=== PATIENT | female | born 1960 | race Caucasian/White ===

== ENCOUNTER → 2017-12-20 09:22 | Outpatient (CLI) | payer OTHER, SELFPAY ==
[2017-12-20 12:50] LABS: Thyroid Stim Hormone (TSH) 0.05 uIU/mL (0.358-3.74)
== END ==
PROVIDERS: Visit Provider Family Medicine
DX: E03.9 Hypothyroidism, unspecified (principal)
CPT/HCPCS: 36415; 84443

== ENCOUNTER → 2018-03-27 10:51 | Outpatient (CLI) | payer OTHER, SELFPAY ==
[2018-03-27 12:46] LABS: T4 Free Direct 1.42 ng/dL (0.76-1.46); Thyroid Stim Hormone (TSH) 0.06 uIU/mL (0.358-3.74)
== END ==
PROVIDERS: Family Provider Family Medicine; PCP Family Medicine; Visit Provider Family Medicine
DX: E03.9 Hypothyroidism, unspecified (principal)
CPT/HCPCS: 36415; 84439; 84443

== ENCOUNTER → 2018-04-03 12:38 | Outpatient (CLI) | payer OTHER, SELFPAY ==
--- NOTE | 2018-04-03 15:48 | RAD_ITS ---
STUDY: XR SPINE ENTIRE THORACIC T LUMBAR (W SKULL, CERVICAL AND SACRAL SPINE IF PERFORMED) REASON FOR EXAM: Female, 58 years old. Scoliosis and back pain TECHNIQUE: Radiological exam, spine, entire thoracic and lumbar, including skull, cervical and sacral spine if performed (eg, scoliosis evaluation); 1 view COMPARISON: None. FINDINGS: There is levoscoliosis of the lumbar spine measuring roughly 34 degrees from the superior endplate of T12 to the inferior endplate of L4. Vertebral body heights appear within normal limits. RAD/Scoliosis 1 view IMPRESSION: Levoscoliosis as above Electronically Signed: Ad Castrejon DO at 15:23 EDT Tel , Service support ,
== END ==
PROVIDERS: Family Provider Family Medicine; PCP Family Medicine; Visit Provider Family Medicine
DX: M41.9 Scoliosis, unspecified (principal)
CPT/HCPCS: 72081

== ENCOUNTER → 2018-05-04 11:05 | Outpatient (CLI) | payer OTHER, SELFPAY ==
[2018-05-04 12:52] LABS: T4 Free Direct 1.34 ng/dL (0.76-1.46); Thyroid Stim Hormone (TSH) 0.17 uIU/mL (0.358-3.74)
== END ==
PROVIDERS: Family Provider Family Medicine; PCP Family Medicine; Visit Provider Family Medicine
DX: E03.9 Hypothyroidism, unspecified (principal)
CPT/HCPCS: 36415; 84439; 84443

== ENCOUNTER 2019-10-03 09:45 | Emergency (ER) | payer OTHER, SELFPAY ==
[2019-10-03 09:47] VITALS: BP 159/114; PULSE 84; RESP 17; TEMP 36.7; O2SAT 95; BMI 28.0
--- NOTE | 2019-10-03 10:09 | ED.VIS.GEN ---
History of Present Illness Chief Complaint: Hypertension Informant: Patient Onset: Weeks - 2 Context: Gradual Onset Timing: Intermittent Quality: asymtpomatic Narrative: Patient states she had a routine visit with her doctor 2 weeks ago, her blood pressure was in the 140s, which is high for her. She does not take blood pressure medication but was told she may need to go on it. She states yesterday it was in the 150s and this morning it was in the 180s. She called the office. She has no symptoms. She was instructed to come to the emergency department. She states she has been stressed lately because her has adrenal adenocarcinoma. She denies any problems urinating, headaches, changes in her vision, chest pain or shortness of breath or palpitations. She has been taking no cold medicines or [id number] decongestants or having any other recent illness. - Past Medical History (1) Hypothyroidism Status: Chronic Past Medical History - Allergies and Home Meds Allergies/Adverse Reactions: Allergies No Known Allergies Allergy (Verified 10/03/19 09:46) Primary Care Physician: Mike Mosqueda MD [Primary Care Provider] - 1-2 Weeks (At least for blood pressure recheck) Lives: Spouse/ Significant Other Smoking Status: Current every day smoker Drugs: None Review of Systems General: Denies: Chills, Fever, Sweats Eyes: Denies: Visual changes - bilaterally, Blurred vision - left, Blurred vision - right, Diplopia ENT: Denies: Bilateral ear pain, Rhinorrhea, Sore throat Cardiovascular: Denies: Chest pain, Palpitations Respiratory: Denies: Dyspnea, Cough, Dyspnea on exertion Gastrointestinal: Denies: Abdominal pain, Nausea, Vomiting, Diarrhea, Melena, Hematochezia Genitourinary: Denies: Dysuria, Hematuria, Frequency Musculoskeletal: Denies: Back pain, Swelling, Extremity Pain Skin: Denies: Rash, Wounds Neurological: Denies: Headache, Weakness, Numbness Psych: Reports: - - Increased stress. Denies: Suicidal thoughts, Suicidal ideations Physical Exam Vital Signs/Narrative: Vital Signs Temp Pulse Resp BP Pulse Ox 10/03/19 09:47 98.0 F 84 17 159/114 H 95 Inital Vital Signs reviewed: Yes General: Well nourished, Well developed, No Acute Distress - Well-appearing in no acute distress Head: Normocephalic, Atraumatic Eyes: Perrl, EOMI ENT: Moist mucous membranes, No rhinorrhea Neck: Supple, Nontender, No lymphadenopathy, No JVD Cardiovascular: Regular rate, Regular rhythm, No murmurs, Normal S1, Normal S2 Respiratory: No distress, CTA bilaterally, Chest nontender Abdomen: Soft, Nontender, Nondistended, Normal bowel sounds Back: Nontender, Normal Inspection Extremities: Nontender, No edema Skin: Normal color, No rash, No Trauma Neurological: Alert, Oriented x3, Cranial nerves II-XII grossly intact, Normal Strength, Normal Sensation, Normal Gait Psychological: Normal affect, Normal Mood Diagnostic/Tx/Re-eval Laboratory Tests 10/03/19 Range/Units 10:34 Sodium 142 (136-145) mmol/L Potassium 3.8 (3.5-5.1) mmol/L Chloride 112 H (98-107) mmol/L Carbon Dioxide 27.0 (21.0-32.0) mmol/L Anion Gap 3 L (5-15) BUN 13 (7-18) mg/dL Creatinine 0.84 (0.55-1.02) mg/dL Estim Creat Clear Calc 73.50 ml/min Est GFR (MDRD) Af Amer 88 (>60) mL/min Est GFR (MDRD) Non-Af 73 (>60) mL/min BUN/Creatinine Ratio 15.5 (10-20) RATIO Glucose 84 (74-106) mg/dL Calcium 9.2 (8.5-10.1) mg/dL - Medical Decision Making Patient is still asymptomatic on reevaluation, after clonidine and lisinopril her blood pressure is 131 systolic. Prescribed lisinopril 10 mg daily and she can follow-up with her doctor. She is comfortable with that plan. ED Disposition - Plan for ED Patient: Disposition: Home or Assisted Living Diagnosis: Episode of hypertension Instructions: HYPERTENSION, New (Begin Treatment) Prescriptions: Lisinopril [Zestril] 10 mg PO DAILY #30 tab Transmission Status: Pending to [id number] Referrals: Mike Mosqueda MD [Primary Care Provider] - 1-2 Weeks (At least for blood pressure recheck)
[2019-10-03] MEDS: cloNIDine HCl 0.1 MG Tablet 0.2 MG PO (10:18)
[2019-10-03 10:20] VITALS: BP 176/108; PULSE 79; RESP 16; O2SAT 96
[2019-10-03] MEDS: Lisinopril 10 MG Tablet PO (10:29)
[2019-10-03 10:54] LABS: Anion Gap 3 (5-15); BUN 13 mg/dL (7-18); BUN/Creat Ratio 15.5 RATIO (10-20); Calcium,Total 9.2 mg/dL (8.5-10.1); Chloride 112 mmol/L (98-107); Creatinine, Serum 0.84 mg/dL (0.55-1.02); EST Glomerular Filtration Rate 73 mL/min (>60); Est Glom Filt Rate - Afr Amer 88 mL/min (>60); Glucose 84 mg/dL (74-106); Potassium 3.8 mmol/L (3.5-5.1); Sodium Level 142 mmol/L (136-145)
[2019-10-03 11:28] VITALS: BP 137/81; PULSE 72; RESP 15; O2SAT 96
[2019-10-03 11:46] VITALS: BP 131/74; PULSE 62; RESP 15; O2SAT 98
== END 2019-10-03 11:47 | disposition home or self-care (01) ==
PROVIDERS: Emergency Provider Emergency Medicine; PCP Family Medicine
DX: I10 Essential (primary) hypertension (principal); E03.9 Hypothyroidism, unspecified; F17.200 Nicotine dependence, unspecified, uncomplicated
CPT/HCPCS: 36415; 80048; 99283

== ENCOUNTER → 2019-11-12 09:47 | Outpatient (CLI) | payer OTHER, SELFPAY ==
[2019-11-12 12:55] LABS: Anion Gap 2 (5-15); BUN 14 mg/dL (7-18); BUN/Creat Ratio 14.4 RATIO (10-20); Calcium,Total 9.3 mg/dL (8.5-10.1); Chloride 110 mmol/L (98-107); Cholesterol 196 mg/dL (200); Creatinine, Serum 0.97 mg/dL (0.55-1.02); EST Glomerular Filtration Rate 62 mL/min (>60); Est Glom Filt Rate - Afr Amer 75 mL/min (>60); Glucose 87 mg/dL (74-106); High Density Lipoprotein 40 mg/dL; Potassium 4.3 mmol/L (3.5-5.1); Sodium Level 140 mmol/L (136-145); Triglycerides 130 mg/dL; Very Low Density Lipoprotein 26 mg/dL (5-40)
== END ==
PROVIDERS: PCP Family Medicine; Referring Provider Family Medicine; Visit Provider Family Medicine
DX: I10 Essential (primary) hypertension (principal)
CPT/HCPCS: 36415; 80048; 80061

== ENCOUNTER → 2020-07-17 10:37 | Outpatient (CLI) | payer OTHER, SELFPAY ==
[2020-07-17 13:23] LABS: Anion Gap 4 (5-15); BUN 11 mg/dL (7-18); BUN/Creat Ratio 14.2 RATIO (10-20); Calcium,Total 8.8 mg/dL (8.5-10.1); Chloride 108 mmol/L (98-107); Creatinine, Serum 0.77 mg/dL (0.55-1.02); EST Glomerular Filtration Rate 80 mL/min (>60); Est Glom Filt Rate - Afr Amer 97 mL/min (>60); Glucose 81 mg/dL (74-106); Potassium 4.2 mmol/L (3.5-5.1); Sodium Level 141 mmol/L (136-145); Thyroid Stim Hormone (TSH) 2.91 uIU/mL (0.358-3.74)
== END ==
PROVIDERS: PCP Family Medicine; Referring Provider Family Medicine; Visit Provider Family Medicine
DX: E03.9 Hypothyroidism, unspecified (principal); I10 Essential (primary) hypertension
CPT/HCPCS: 36415; 80048; 84443

== ENCOUNTER 2021-11-03 15:32 | Outpatient (CLI) | payer OTHER, SELFPAY ==
[2021-11-03 18:43] LABS: Anion Gap 5 (5-15); BUN 12 mg/dL (7-18); BUN/Creat Ratio 15.3 RATIO (10-20); Chloride 110 mmol/L (98-107); Cholesterol 225 mg/dL (200); Creatinine, Serum 0.78 mg/dL (0.55-1.02); EST Glomerular Filtration Rate 79 mL/min (>60); Est Glom Filt Rate - Afr Amer 95 mL/min (>60); Glucose 91 mg/dL (74-106); High Density Lipoprotein 41 mg/dL; Sodium Level 141 mmol/L (136-145); Thyroid Stim Hormone (TSH) 1.06 uIU/mL (0.358-3.74); Triglycerides 214 mg/dL; Very Low Density Lipoprotein 43 mg/dL (5-40)
== END 2021-11-03 23:59 | disposition home or self-care (01) ==
LOC: MFPLAB 15:34
PROVIDERS: PCP Family Medicine; Referring Provider Family Medicine; Visit Provider Family Medicine
DX: E03.9 Hypothyroidism, unspecified (principal); I10 Essential (primary) hypertension
CPT/HCPCS: 36415; 80048; 80061; 84443

== ENCOUNTER → 2022-08-20 | Outpatient (CLI) | payer OTHER, SELFPAY ==
[2022-08-20 11:04] LABS: Anion Gap 5 (5-15); BUN 12 mg/dL (7-18); BUN/Creat Ratio 11.8 RATIO (10-20); Calcium,Total 9.4 mg/dL (8.5-10.1); Chloride 106 mmol/L (98-107); Cholesterol 286 mg/dL (200); Creatinine, Serum 1.02 mg/dL (0.55-1.02); EST Glomerular Filtration Rate 58 mL/min (>60); Est Glom Filt Rate - Afr Amer 70 mL/min (>60); Glucose 93 mg/dL (74-106); High Density Lipoprotein 52 mg/dL; Sodium Level 139 mmol/L (136-145); T4 Free Direct 0.59 ng/dL (0.76-1.46); Triglycerides 214 mg/dL; Very Low Density Lipoprotein 43 mg/dL (5-40)
== END | disposition home or self-care (01) ==
LOC: MFPLAB 08:51
PROVIDERS: PCP Family Medicine; Referring Provider Family Medicine; Visit Provider Family Medicine
DX: Z13.1 Encounter for screening for diabetes mellitus (principal); Z13.220 Encounter for screening for lipoid disorders; E03.9 Hypothyroidism, unspecified
CPT/HCPCS: 36415; 80048; 80061; 84439; 84443

== ENCOUNTER 2022-08-22 18:44 | Emergency (ER) | payer OTHER, SELFPAY ==
[2022-08-22 18:45] VITALS: BP 180/116; PULSE 81; RESP 18; TEMP 36; O2SAT 98; BMI 27.8
--- NOTE | 2022-08-22 19:02 | EKG12_ITS ---
Test Reason : NEURO/CP Blood Pressure : / mmHG Vent. Rate : 074 BPM Atrial Rate : 074 BPM P-R Int : 114 ms QRS Dur : 098 ms QT Int : 404 ms P-R-T Axes : 030 -21 059 degrees QTc Int : 448 ms Normal sinus rhythm Nonspecific T wave abnormality Poor R wave progression Abnormal ECG Confirmed by RODRÍGUEZ FRAZIER, DESIRAE ([id number]), features editor GRADY GREEN ([id number]) on 08/25/2022 11:01:52 AM Referred By: MARY Confirmed By:DESIRAE ARREGUIN MD
--- NOTE | 2022-08-22 19:02 | CT_ITS ---
STUDY: CT BRAIN WITHOUT CONTRAST REASON FOR EXAM: Female, 62 years old. tingling RADIATION DOSAGE (If Supplied By Facility): CTDIvol = ( 44.99 ) mGy, DLP = ( 779.24 ) mGycm TECHNIQUE: Transaxial CT imaging of the brain was performed without administration of intravenous contrast material. Individualized dose optimization techniques were used for this CT. COMPARISON: No relevant priors. FINDINGS: Normal soft tissue structures. Normal calvarium. Normal size ventricles and extra-axial spaces for the patient''s age. Normal white matter tracts of the cerebral hemispheres. Normal basal ganglia and thalami. Normal brainstem. Normal cerebellum. There is no intracranial hemorrhage. There are no findings of an acute ischemic infarction. Normal visualized paranasal sinuses. CT/Brain/Head without Contrast IMPRESSION: Normal unenhanced CT scan of the brain. Electronically Signed: Hernán Baird MD at 20:02 EST ,
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
[2022-08-22 19:10] VITALS: BMI 28.2
[2022-08-22 19:14] LABS: Absolute Lymphocyte Count 2.25 X10^3/uL (0.83-4.51); Absolute Neutrophil Count 2.2 X10^3/uL (2.0-7.7); Basophil# 0.02 X10^3/uL; Basophil% 0.4 % (0-1); Eosinophil# 0.11 X10^3/uL; Eosinophils% 2.2 % (0-5); Hematocrit 41.8 % (37-47); Hemoglobin 14.4 g/dL (12.0-15.0); Lymphocyte # 2.25 X10^3/ul (0.83-4.51); Lymphocyte % 44.7 % (19-41); Mean Corp Hgb Conc 34.4 g/dL (32-36); Mean Corpuscular Hgb 32.2 pg (27.0-32.0); Mean Corpuscular Volume 93.5 fL (81-99); Mean Platelet Vol. 8.8 fl (6.2-12.0); Monocyte# 0.48 X10^3/uL; Monocyte% 9.5 % (0-10); NRBC Flagged by Analyzer 0 % (0-5); Neutrophil # 2.16 X10^3/uL (2.7-7.7); Platelet Count 274 K/mm3 (150-450); RBC Distribution Width CV 12.8 % (11.6-14.6); RBC Distribution Width SD 43.9 fl (35.1-43.9); Red Blood Count 4.47 M/mm3 (4.2-5.4)
--- NOTE | 2022-08-22 19:17 | RAD_ITS ---
STUDY: X-RAY CHEST REASON FOR EXAM: Female, 62 years old. pain TECHNIQUE: Single AP portable view of the chest. COMPARISON: None. FINDINGS: Poor inspiration with some bibasilar atelectasis. There is no demonstrated pleural abnormality. Normal size heart. Normal mediastinum and colleen. Normal visualized pulmonary arteries. Normal visualized aortic arch and descending thoracic aorta. Normal visualized thoracic spine. Normal visualized ribs, clavicles, and shoulders. There is no demonstrated abnormality of the visualized soft tissue structures of the upper abdomen. RAD/Chest 1 View (Portable) IMPRESSION: Poor inspiration with some bibasilar atelectasis. Electronically Signed: Hernán Baird MD at 20:03 EST ,
[2022-08-22] MEDS: Labetalol (Prefilled) 20 MG/4 ML 10 MG IV (19:24)
[2022-08-22 19:30] VITALS: BP 141/97; PULSE 59; RESP 15; O2SAT 92
[2022-08-22 19:30] LABS: Anion Gap 4 (5-15); BUN 13 mg/dL (7-18); BUN/Creat Ratio 14.3 RATIO (10-20); Calcium,Total 9.4 mg/dL (8.5-10.1); Chloride 110 mmol/L (98-107); Creatinine, Serum 0.91 mg/dL (0.55-1.02); EST Glomerular Filtration Rate 66 mL/min (>60); Est Glom Filt Rate - Afr Amer 80 mL/min (>60); Glucose 91 mg/dL (74-106); Potassium 3.9 mmol/L (3.5-5.1); Sodium Level 141 mmol/L (136-145); Troponin-I HS 6 pg/mL (3.0-54.0)
[2022-08-22 20:00] VITALS: BP 143/98; PULSE 64; RESP 15; O2SAT 93
[2022-08-22 20:30] VITALS: BP 128/98; PULSE 64; RESP 15; O2SAT 94
[2022-08-22 21:01] VITALS: BP 128/98; PULSE 67; RESP 16; O2SAT 98
== END 2022-08-22 21:01 | disposition home or self-care (01) ==
PROVIDERS: Emergency Provider Emergency Medicine; PCP Family Medicine; Visit Provider Emergency Medicine
DX: M54.12 Radiculopathy, cervical region (principal); I10 Essential (primary) hypertension; M25.519 Pain in unspecified shoulder; F17.210 Nicotine dependence, cigarettes, uncomplicated
CPT/HCPCS: 70450; 71045; 80048; 84484; 85025; 93005; 99283

== ENCOUNTER → 2022-09-02 | Outpatient (CLI) | payer OTHER, SELFPAY ==
[2022-09-02 12:54] LABS: Anion Gap 3 (5-15); BUN 8 mg/dL (7-18); BUN/Creat Ratio 8.1 RATIO (10-20); Calcium,Total 8.8 mg/dL (8.5-10.1); Chloride 108 mmol/L (98-107); Creatinine, Serum 0.99 mg/dL (0.55-1.02); EST Glomerular Filtration Rate 60 mL/min (>60); Est Glom Filt Rate - Afr Amer 73 mL/min (>60); Glucose 85 mg/dL (74-106); Potassium 3.8 mmol/L (3.5-5.1); Sodium Level 139 mmol/L (136-145); T4 Free Direct 0.94 ng/dL (0.76-1.46)
== END | disposition home or self-care (01) ==
LOC: MFPLAB 10:48
PROVIDERS: PCP Family Medicine; Visit Provider Family Medicine
DX: E03.9 Hypothyroidism, unspecified (principal); I10 Essential (primary) hypertension
CPT/HCPCS: 36415; 80048; 84439; 84443

== ENCOUNTER → 2022-11-09 | Outpatient (CLI) | payer OTHER, SELFPAY ==
--- NOTE | 2022-11-09 12:55 | RAD_ITS ---
INDICATION: Scoliosis EXAMINATION/TECHNIQUE: X-RAY - XR Spine Entire Thoracic and Lumbar One View (W skull, cervical and sacral spine if performed) COMPARISON: 04/03/2018 FINDINGS: Levoscoliosis from T11 to L3 centered on L1. Orellana angle is 46 degrees. Orellana angle was 37 degrees on 04/03/2018 when measured in a similar fashion. 1.9 cm leftward subluxation of L3 on L4. Mild leftward subluxation of L4 and L5. No acute abnormal finding the partially visualized chest or abdomen. RAD/Scoliosis 1 view IMPRESSION: Increased degree of levoscoliosis centered on L1. Electronically Signed: Tariq Lewis MD at 19:31 EST ,
[2022-11-09 16:24] LABS: Anion Gap 7 (5-15); BUN 13 mg/dL (7-18); Calcium,Total 9.4 mg/dL (8.5-10.1); Chloride 108 mmol/L (98-107); Cholesterol 222 mg/dL (200); Creatinine, Serum 0.81 mg/dL (0.55-1.02); EST Glomerular Filtration Rate 75 mL/min (>60); Est Glom Filt Rate - Afr Amer 91 mL/min (>60); Glucose 83 mg/dL (74-106); High Density Lipoprotein 46 mg/dL; Potassium 3.9 mmol/L (3.5-5.1); Sodium Level 141 mmol/L (136-145); T4 Free Direct 1.32 ng/dL (0.76-1.46); Thyroid Stim Hormone (TSH) 0.36 uIU/mL (0.358-3.74); Triglycerides 159 mg/dL; Very Low Density Lipoprotein 32 mg/dL (5-40)
== END | disposition home or self-care (01) ==
PROVIDERS: PCP Family Medicine; Referring Provider Family Medicine; Visit Provider Family Medicine
DX: I10 Essential (primary) hypertension (principal); E03.9 Hypothyroidism, unspecified; M41.9 Scoliosis, unspecified
CPT/HCPCS: 36415; 72081; 80048; 80061; 84439; 84443

== ENCOUNTER → 2022-11-30 | Outpatient (CLI) | payer OTHER, SELFPAY ==
--- NOTE | 2022-11-30 12:35 | BD_ITS ---
STUDY: DUAL ENERGY X-RAY ABSORPTIOMETRY / DXA REASON FOR EXAM: Female, 62 years old. Scoliosis TECHNIQUE: Bone Mineral Density (BMD) measurements of lumbar spine and bilateral hips were obtained. COMPARISON: None. FINDINGS: Lumbar Spine (L1-L4): g/cm2 (0.855) / T-score (-1.7) / Z-score (0.0) Findings are suggestive of osteopenia with a moderate fracture risk. Left Femur Total: g/cm2 (0.775) / T-score (-1.4) / Z-score (-0.1) Left Femoral Neck: g/cm2 (0.672) / T-score (-1.6) / Z-score (-0.1) Right Femur Total: g/cm2 (0.819) / T-score (-1.0) / Z-score (0.2) Right Femoral Neck: g/cm2 (0.685) / T-score (-1.5) / Z-score (0.0) BD/Dexa Bone Density Study IMPRESSION: The patient is considered osteopenic as outlined below according to World [employer] Organization (WHO) criteria with a moderate fracture risk. Reference Information: The T-score is the number of standard deviations above or below the standard which is normal for young adults at their peak bone mineral density. The World Health Organization (WHO) interprets the T-scores as follows: Above -1 Normal bone density Between -1 and -2.5 Osteopenia Equal to / or below -2.5 Osteoporosis As a practical clinical guideline, osteopenia may be graded as follows: Mild -1 through -1.5 Moderate -1.6 through -2.0 Severe -2.1 through -2.4 The Z-score is the number of standard deviations above or below age-matched controls. A Z-score of less than -1.5 would be considered abnormal. References: 1. NIH Osteoporosis and Related Bone Diseases www osteo.org 2. International Society for Clinical Densitometry www iscd.org 3. National Osteoporosis Foundation www nof.org Electronically Signed: Remy Leslie MD at 12:16 EDT ,
== END | disposition home or self-care (01) ==
PROVIDERS: PCP Family Medicine; Visit Provider Orthopaedic Surgery
DX: M41.9 Scoliosis, unspecified (principal); M85.88 Other specified disorders of bone density and structure, other site
CPT/HCPCS: 77080

== ENCOUNTER → 2022-12-04 | Outpatient (CLI) | payer OTHER, SELFPAY ==
--- NOTE | 2022-12-04 12:36 | MRI_ITS ---
INDICATION: scoliosis EXAMINATION: MRI - MR Spine Lumbar W/O Contrast TECHNIQUE: Multiplanar and multisequence MR images of the lumbar spine. IV Contrast Dosage and Agent: None. COMPARISON: None. FINDINGS: VERTEBRAE: There is loss of vertebral body height on the right at the L4 and L3 levels. VERTEBRAL ALIGNMENT: There is a severe levoscoliosis of the thoracolumbar spine with leftward subluxation of L3 with respect to L2 and L4 leftward subluxation of L4 with respect to L5. There is preservation of the normal lumbar lordosis. CORD: Normal position and signal intensity of the conus medullaris. Probable simple cyst within the right kidney measuring 3.2 cm and 0.8 cm. Additional smaller cysts are suggested in both kidneys. However within the medial midpole of the left kidney there is a lesion which is high signal on T1-weighted imaging and low signal on T2-weighted imaging measuring 1.98 cm. This could represent complex cyst or mass. L1/L2: Severe loss of disc space height, severe disc desiccation, mild disc osteophyte, moderate bilateral neural foraminal encroachment L2/L3: Severe loss of disc space height, severe disc desiccation, mild disc osteophyte, bilateral facet arthropathy and moderate bilateral neural foraminal encroachment. L3/L4: Moderate disc desiccation and loss of disc space height, moderate disc bulging, moderate bilateral facet arthropathy and ligamentous hypertrophy, severe left and moderate right neural foraminal encroachment. L4/L5: Moderate disc desiccation, mild disc bulging, moderate bilateral facet arthropathy, severe left and moderate right neural foraminal encroachment. L5/S1: Moderate disc desiccation and loss of disc space height, mild disc bulging, moderate right and mild left facet arthropathy, moderate right and mild left neural foraminal encroachment. SOFT TISSUES: Unremarkable. MRI/Spine Lumbar (Routine) IMPRESSION: Complex cyst versus mass medial midpole left kidney. Initial exam could include renal ultrasound or if necessary CT of the abdomen without and with contrast. Severe levoscoliosis. Diffuse degenerative disc disease with multilevel disc bulging, central stenosis, facet arthropathy and neural foraminal encroachment detailed above. Electronically Signed: Jigar Truong MD, GENO at 14:48 EDT ,
== END | disposition home or self-care (01) ==
LOC: MRI 12-08 12:28
PROVIDERS: PCP Family Medicine; Referring Provider Orthopaedic Surgery; Visit Provider Orthopaedic Surgery
DX: M41.9 Scoliosis, unspecified (principal)
CPT/HCPCS: 72148

== ENCOUNTER → 2022-12-30 | Outpatient (CLI) | payer MEDICARE, SELFPAY ==
[2022-12-30 12:46] LABS: PTHIN 57.2 pg/mL (18.4-80.1)
[2022-12-30 12:48] LABS: Vitamin D,25 Hydroxy 39.3 ng/mL
[2022-12-30 13:16] LABS: Anion Gap 2 (5-15); BUN 10 mg/dL (7-18); BUN/Creat Ratio 11.6 RATIO (10-20); Calcium,Total 9.1 mg/dL (8.5-10.1); Chloride 111 mmol/L (98-107); Creatinine, Serum 0.86 mg/dL (0.55-1.02); EST Glomerular Filtration Rate 70 mL/min (>60); Est Glom Filt Rate - Afr Amer 85 mL/min (>60); Glucose 90 mg/dL (74-106); Magnesium 2.1 mg/dL (1.6-2.6); Phosphorus 3.3 mg/dL (2.5-4.9); Sodium Level 138 mmol/L (136-145); Thyroid Stim Hormone (TSH) 1.63 uIU/mL (0.358-3.74)
== END | disposition home or self-care (01) ==
LOC: MFPLAB 09:52
PROVIDERS: PCP Family Medicine; Visit Provider Family Medicine
DX: M85.80 Other specified disorders of bone density and structure, unspecified site (principal); E03.9 Hypothyroidism, unspecified
CPT/HCPCS: 36415; 80048; 82306; 82330; 83735; 83970; 84100; 84443

== ENCOUNTER 2023-01-17 10:00 | Outpatient (RCR) | payer MEDICARE, SELFPAY ==
--- NOTE | 2022-12-23 10:57 | HP.PTEVAL ---
Patient's Visit Information BERTHA BLUM is a 62 year old F referred to Physical Therapy by Dr. Roberto Augustin DO with a diagnosis of SECONDARY SCOLIOSIS ,SITE AND SCOLIOSIS LUMBAR. Date of Evaluation: 12/23/22 Physical Therapist: Johnny Zuniga, PT, Cert MDT, OCS - Visit Plan Frequency: 2x /Week Duration: 4 Weeks Plan: PT INTERVETIONS POSTURAL EX'S ,DLS ,BLE STRENGTHENING ESPECIIALLY LEFT LEG AND MODALTIES NEEDED - Subjective This 62 y/o female presents to physical therapy with lumbar pain . Patient has lumbar pain ~ 2years but symptoms progressively worse past ~ 1year . Patient pain located left lumbar to lateral hip . Seen Dr. Augustin had MRI showed severe stenosis ,DDD scoliosis. Recommended PT.Patient bone density test osteoporosis. No medication or recommended pain management. Aggravating factors walking ,standing and unable to lift . Alleviating factors sitting is worse. C/O paresthesia/tingling left leg. Patient pain does not affects sleeping. Bowel/bladder -. Coughing/sneezing -. Patient has no abnormal night pain. Patient pain affects QOL and function. Patient has no h/o trauma. PRECAUTION: osteoporosis. SOCIAL: . VOCATION: Farming - Pain Bilateral Back Pain Intensity (Out of 10): 9 Pain Intensity Range: 10 Comment: walking - Objective POSTURE: asymmetries pelvis elevated on left , leg length asymmetries , scoliosis , mild forward posture. GAIT: mild forward posture knee valgus scoliosis antalgic gait slow zane with scoliosis. FLEXABILITY: hamstrings min tight. IR HIP : 10 DEGREES. LUMBAR ROM: flexion min loss but difficulty with return to standing gowers sign ,extension mod loss ,side glides mod loss pain on left side. MMT( peak force) quads right 13.6 ,left 8.9 ,hamstrings right 14.2 ,left 7.8 ,hip flexion right 8.0 ,left 2.1. - Special Tests L/S Slump test left side: Negative L/S Slump test right side: Negative L/S Left Straight Leg Raise: Negative L/S Right Straight Leg Raise: Negative - Balance/Special Test Scores Oswestry Low Back Score: 22 - Goals Goal 1:: Patient to be I with HEP for back Goal Time Frame: 4-6 Weeks Goal 2:: Patient to demonstrate 40% improvement with decrease pain and improve function Goal Time Frame: 4-6 Weeks Goal 3:: Patient improve lumbar ROM for function of recovery for ADLS' Goal Time Frame: 4-6 Weeks Goal 4:: Patient to improve strength peak force of left leg by 10 to improve function Goal Time Frame: 4-6 Weeks Goal 5:: Patient to improve back oswestry score by 5 points to improve function Goal Time Frame: 4-6 Weeks - Rehabilitation Potential Physical Therapy Diagnosis: This patient has severe stenosis ,DDD along with scoliosis with pain ,weakness left leg > right with decrease ROM impairs walking and standing causes deficits in with ADLS and function Rehabilitation Potential: Fair - Anticipated Interventions Patient/Client Instruction: Educate patient on: Condition, Plan of Care For the Purpose of:: To decrease pain, To increase ROM, To improve muscle performance and motor function, To improve ability to perform ADL's, To increase tolerance to activity/condition/position, To improve ability of physical actions for home/community/work/leisure, To improve health of tissue, To decrease soft tissue restriction, To increase flexibility/ROM, To improve endurance, To prevent re-injury Therapeutic Exercise to Include: Strength training, Endurance training, Body mechanics, Postural training, Flexibilty training, Dynamic Lumbar Stabilization Comment: BLE For the Purpose of:: To decrease pain, To increase ROM, To improve muscle performance and motor function, To improve ability to perform ADL's, To increase tolerance to activity/condition/position, To improve ability of physical actions for home/community/work/leisure, To improve health of tissue, To decrease soft tissue restriction, To increase flexibility/ROM, To improve health and function TENS: Yes IF ES: Yes Cryotherapy (ice pack, ice massage): Yes Thermo therapy (hot pack): Yes Ultrasound (thermal/non thermal): Yes For the Purpose of:: To decrease swelling/inflammation, To improve nutrient delivery to tissue, To increase oxygenation perfusion, To improve health of tissue, To decrease soft tissue restriction Thank you for the opportunity to evaluate your patient. For Medicare and Medicare HMO plans, please review the plan of care and approve it. It will need to be FAXED BACK to us at [phone] for Medicare purposes. For Medicare only, by signing this I certify the plan of care. Please let me know if there are questions or concerns regarding this plan of care. Physician Signature: Date:
--- NOTE | 2023-04-26 09:32 | HP.PTDCSUM ---
Discharge Summary D/C summary: It has been my pleasure to treat BERTHA BLUM referred by Dr. Roberto Augustin DO, with the diagnosis of SECONDARY SCOLIOSIS, SITE AND SCOLIOSIS LUMBAR for a total of 7 visit(s). Discharge Date: Please see the following information for a summary of their discharge status. Subjective Subjective: Pt states no back pain - still feeling good. Tired after last session. Pain Bilateral Back: Pain Intensity (Out of 10): 0 Overall Improvement % Improvement: 80 Objective Objective/Function: Pt states only 1 more PT session - anticipate d/c at that time. Did really well with progressions in overall volume - conts to c/o (jokingly, I think) t/o. Goals Goal 1:: Patient to be I with HEP for back Goal 2:: Patient to demonstrate 40% improvement with decrease pain and improve function Goal 3:: Patient improve lumbar ROM for function of recovery for ADLS' Goal 4:: Patient to improve strength peak force of left leg by 10 to improve function Goal 5:: Patient to improve back oswestry score by 5 points to improve function Plan Plan: PT INTERVETIONS POSTURAL EX'S, DLS, BLE STRENGTHENING ESPECIALLY LEFT LEG, AND MODALTIES NEEDED D/C Information d/c sentence: If there are questions or concerns regarding this patient's physical therapy, please feel free to call me at [phone]. Thank you for the referral of this patient. Sincerely, Johnny Zuniga, PT, Cert MDT, OCS Balance/Gait/Functional tests Balance/Special Test Scores Oswestry Low Back Score: 5
== END 2023-01-17 19:00 | disposition home or self-care (01) ==
LOC: PT 10:00
PROVIDERS: PCP Family Medicine; Referring Provider Orthopaedic Surgery; Visit Provider Orthopaedic Surgery
DX: M41.56 Other secondary scoliosis, lumbar region; M48.061 Spinal stenosis, lumbar region without neurogenic claudication; M51.36 Other intervertebral disc degeneration, lumbar region
CPT/HCPCS: 97110; 97162

== ENCOUNTER → 2023-07-06 | Outpatient (CLI) | payer MEDICARE, SELFPAY ==
[2023-07-06 18:25] LABS: Anion Gap 2 (5-15); BUN 13 mg/dL (7-18); BUN/Creat Ratio 14.9 RATIO (10-20); Calcium,Total 9.2 mg/dL (8.5-10.1); Chloride 111 mmol/L (98-107); Cholesterol 231 mg/dL (200); Creatinine, Serum 0.87 mg/dL (0.55-1.02); EST Glomerular Filtration Rate 69 mL/min (>60); Est Glom Filt Rate - Afr Amer 84 mL/min (>60); Glucose 93 mg/dL (74-106); High Density Lipoprotein 57 mg/dL; Potassium 3.5 mmol/L (3.5-5.1); Sodium Level 141 mmol/L (136-145); T4 Free Direct 0.86 ng/dL (0.76-1.46); Thyroid Stim Hormone (TSH) 4.26 uIU/mL (0.358-3.74); Triglycerides 117 mg/dL; Very Low Density Lipoprotein 23 mg/dL (5-40)
== END | disposition home or self-care (01) ==
LOC: MFPLAB 16:27
PROVIDERS: PCP Family Medicine; Visit Provider Family Medicine
DX: E03.9 Hypothyroidism, unspecified (principal); I10 Essential (primary) hypertension
CPT/HCPCS: 36415; 80048; 80061; 84439; 84443

== ENCOUNTER → 2023-07-11 | Outpatient (CLI) | payer MEDICARE, SELFPAY ==
--- NOTE | 2023-07-11 14:37 | US_ITS ---
STUDY: RENAL ULTRASOUND - COMPLETE REASON FOR EXAM: Female, 63 years old. OTHER SPECIFIED DISORDERS OF KIDNEY AND URETER TECHNIQUE: Ultrasound evaluation of the kidneys was performed with real-time and static levi-scale imaging. COMPARISON: None. FINDINGS: RIGHT KIDNEY: Normal location of the right kidney, which is normal in size. The right kidney measures 11.9 x 6.4 x 4.1 cm. There is a normal cortex of the right kidney. The renal cortex measures 1.5 cm. Within the right kidney there are several anechoic structure compatible with simple cysts, one seen in the upper pole measuring 2.1 x 2.1 x 1.5 cm, one seen in the middle pole measuring 1.9 x 1.9 x 1.6 cm in the third seen in the lower pole measuring 4.4 x 2.9 x 2.8 cm. There are no right renal calculi. There is no right hydronephrosis. DISTAL RIGHT URETER: There is non-visualization of the distal right ureter. There is no demonstrated right ureterovesical junction calculus. There is a visualized right ureteral jet. LEFT KIDNEY: Normal location of the left kidney, which is normal in size. The left kidney measures 11.9 x 5.4 x 4.9 cm. There is a normal cortex of the left kidney. The renal cortex measures 1.3 cm. Within the left kidney there are 2 round anechoic structure compatible with simple cysts, one seen in the upper pole measuring 1.5 x 1.6 x 1.3 cm and the second seen in lateral aspect of the middle pole, measuring 1.3 x 1.5 x 0.9 cm. There are no left renal calculi. There is no left hydronephrosis. DISTAL LEFT URETER: There is non-visualization of the distal left ureter. There is no demonstrated left ureterovesical junction calculus. There is a visualized left ureteral jet. BLADDER: The urinary bladder has a volume of 19 ml. There is a normal wall thickness of the distended urinary bladder. There is no demonstrated mass within the urinary bladder. There are no demonstrated bladder calculi. US/Kidney and Bladder IMPRESSION: Bilateral simple renal cysts as described otherwise unremarkable bilateral kidneys with no hydronephrosis or stone. Electronically Signed: Moon Dahl MD at 0:48 EDT ,
== END | disposition home or self-care (01) ==
LOC: US 14:35
PROVIDERS: PCP Family Medicine; Referring Provider Family Medicine; Visit Provider Family Medicine
DX: N28.89 Other specified disorders of kidney and ureter (principal)
CPT/HCPCS: 76770

== ENCOUNTER → 2023-07-14 | Outpatient (CLI) | payer MEDICARE, SELFPAY ==
--- NOTE | 2023-07-14 08:17 | AAAS_ITS ---
Reason For Study: Screening Aorta Measurements Aorta Doppler Measurements Proximal aorta measures2.28 x 2.40cm. in cross- Peak systolic flow velocities within the proximal sectional axis. aorta measure 50.4 cm/sec. Proximal aorta measures2.45cm. in longitudinal Peak systolic flow velocities within the mid aorta axis. measure 48.8 cm/sec. Mid aorta measures1.82 x 1.92cm. in cross- Peak systolic flow velocities within the distal sectional axis. aorta measure 52.5 cm/sec. Mid aorta measures1.95cm. in longitudinal axis. Distal aorta measures1.78 x 1.73cm. in cross- sectional axis. Distal aorta measures1.73cm. in longitudinal axis. Left Iliac Artery Left iliac artery measures 0.92 x 1.00 cm. in the cross-sectional axis. Left iliac artery measures 1.00 cm. in the longitudinal axis. Peak systolic velocity in the left iliac artery measures 100.7 cm/sec. Right Iliac Artery Right iliac artery measures 1.06 x 1.18 cm. in the cross-sectional axis. Right iliac artery measures 1.13 cm. in the longitudinal axis. Peak systolic velocity in the right iliac artery measures 83.2 cm/sec. Procedure Aorta IVC Iliac vasculature or bypass grafts [id number]. The exam was diagnostic. Exam performed in department. VL/AAA Screening Interpretation Summary The intra-abdominal aorta appears normal in caliber, without evidence of aneury smal dilatation. The iliac arteries also appear normal in size bilaterally. The intra-abdominal aort a and iliac arteries appear patent, demonstrating normal pulsatile arterial flow and normal peak sys tolic velocities. Ordering Physician: Mike Mosqueda Referring Physician: Mike Mosqueda Performed By: Anselmo Lagos, RVT
--- NOTE | 2023-07-14 08:36 | BI_ITS ---
MAMMOGRAPHY - BILATERAL SCREENING REASON FOR EXAM: Female, 63 years old. Routine annual screening examination. PERTINENT HISTORY: Mother with breast cancer. TECHNIQUE: Digital bilateral breast jj (3D mammographic acquisition) in the CC and MLO projections. 2-D mediolateral oblique (MLO) and craniocaudad (CC) views of both breasts were obtained. CAD: Full Field Digital Mammography with Computer Added Detection was performed. COMPARISON: Comparison is made with prior abdomen examination dated August 16, 2012. FINDINGS: Breast Composition: There are scattered areas of fibroglandular density. There are no dominant masses or suspicious calcifications. There is a 1 cm x 0.7 cm well-defined nodule in the deep upper medial aspect of the right breast. This appears to be a skin mole. No other significant abnormalities are identified. There has been no significant change since the prior study. BI/SCRN MAMM (CAD)W/JJ BILAT IMPRESSION: Stable bilateral screening mammogram. Yearly follow-up mammogram recommended. (A) ASSESSMENT CATEGORY: BIRADS Category 2: Benign. A letter regarding these results will be sent to the patient by the facility within 30 days. Approximately 10% of breast cancers are not detected by mammography. A normal mammogram should not delay biopsy of a clinically suspicious abnormality. [id number] Electronically Signed: Remy Leslie MD at 10:05 EDT ,
== END | disposition home or self-care (01) ==
PROVIDERS: PCP Family Medicine; Referring Provider Family Medicine; Visit Provider Family Medicine
DX: Z12.31 Encounter for screening mammogram for malignant neoplasm of breast (principal); Z80.3 Family history of malignant neoplasm of breast; Z13.6 Encounter for screening for cardiovascular disorders
CPT/HCPCS: 76706; 77063; 77067

== ENCOUNTER 2024-01-31 06:24 | Day surgery (SDC) | payer MEDICARE, SELFPAY ==
--- NOTE | 2024-01-31 06:35 | HP.PCM_ITS ---
HPI - General HPI Narrative BERTHA BLUM, is a 64 F who presents for screening colonoscopy. Patient reports her last colonoscopy was at least 10 years ago. She denies abdominal pain or blood in the stool. She has family history of colon cancer in her mother in her 70s. She denies blood thinners. [facility] Medical History (Updated 01/27/24 @ 08:52 by Josef Bunch) Wears dentures Scoliosis Low iron Smoker Family history of colon cancer in mother DDD (degenerative disc disease) Hypertension Hypothyroidism Home Medications ?Medication ?Instructions ?Recorded ?Last Taken ?Type levothyroxine 100 mcg tablet 100 mcg PO DAILY 08/22/22 08/22/22 History trazodone 100 mg tablet 100 mg PO QHS PRN insomnia 08/22/22 08/21/22 History losartan 25 mg tablet (Cozaar) 50 mg PO DAILY 01/27/24 Unknown History tizanidine 4 mg capsule 4 mg PO TID PRN muscle spasticity 01/27/24 Unknown History Allergy/AdvReac Type Severity Reaction Status Date / Time lisinopril AdvReac COUGH Verified 01/27/24 08:42 Family History (Updated 12/07/23 @ 10:50 by Tricia Valero) Mother Colon cancer CVA (cerebral vascular accident) Cervical cancer Surgical History (Updated 01/27/24 @ 08:52 by Josef Bunch) Hx of appendectomy H/O exploratory laparotomy History of bilateral oophorectomy History of total abdominal hysterectomy Hx of colonoscopy Social History (Updated 12/07/23 @ 10:51 by Tricia Valero) household members: other details: current occupational status: retired Smoking Status: Current some day smoker tobacco type: cigarettes details: Rare alcohol substance use type: does not use Past Medical/Surgical History Planned Operation Planned Operative Procedure/s: COLONOSCOPY Previous Hospitalizations/Surgeries HX Hospitalizations: No Any Problems With Anesthesia: No You/Your Family Experience Fever (Hyperthermia) With Anes: No Cholinesterase deficiency: No Cardiovascular Hx Chest Pain within Last 2 months: No Hx of Irregular Heartbeat and/or Afib: No Hx Heart Attack: No Hx Congestive Heart Failure: No Hx Hypertension: Yes (CONTROLLED WITH MEDS) Hx Pacemaker: No Hx Cardiac Surgery/Stents/Etc.: No Respiratory Hx Chronic Obstructive Pulmonary Disease (COPD): No Hx Asthma: No Hx Emphysema: No Hx Sleep Apnea: No Hx Respiratory Tract Infection/Cold (presently): No Do You Snore Loudly (louder than talking or can be heard): No Do You Often Feel Tired/ Fatigued/ Sleepy Dring Daytime?: No Has Anyone Observed You Stop Breathing During Sleep?: No Result (for STOP score): Negative Hx Smoking: No Smoking Status: Current some day smoker Gastrointestinal Hx Ulcer: No Special diet followed at home: No Neurological Hx Seizures: No Hx Multiple Sclerosis: No Hx Parkinson's Disease: No Hx Head/Neck Injury: No Hx Headaches: No Hx Back Injury/Pain: Yes Does patient have nerve stimulator: No Blood Disorder Hx Anemia: No Genitourinary Hx Dialysis: No Musculoskeletal Hx Arthritis: Yes Hx Rheumatoid Arthritis: No Endocrine Hx Diabetes: No Thyroid Disease: No Psycho/Social Hx Anxiety: No Hx Depression: Yes Hx Dementia: No Miscellaneous Hx Cancer: No Allergies lisinopril Adverse Reaction (Verified 01/27/24 08:42) COUGH Discharge After D/C, Where Do you Plan to Go: Return Home From the [facility] History Number of Risk Factors: 2 Physical Exam Const alert and oriented x3 HEENT normocephalic Eyes PERRL Resp normal respiratory effort and normal air movement Cardio regular rate and regular rhythm GI soft to palpation, non-tender and non-distended Extremity normal to inspection Assessment & Plan Assessment/Plan (1) Encounter for screening for malignant neoplasm of colon: PLAN: I explained endoscopy in detail to the patient. I explained the risks including but not limited to stroke or heart attack with anesthesia, perforation of the GI tract, bleeding, infection. I explained that any of these could necessitate further emergency surgery. The patient understands and all questions were answered sufficiently. The patient wishes to proceed with pr kerlinedulilliana. Marcial Davis MD Pager: [facility] [address] [place] [address], [address] [place] [address] Office: Surgery Risks - Colonoscopy Risks Include but are not Limited To: Risks include but are not limited to: Bleeding, perforation requiring further surgery, inability to complete colonoscopy requiring barium enema.
[2024-01-31 07:09] VITALS: BP 136/96; PULSE 79; RESP 16; TEMP 36.4; O2SAT 94; BMI 26.4
[2024-01-31] MEDS: Lactated Ringers 1,000 ML 15 ML IV (07:11)
[2024-01-31 07:53] VITALS: BP 111/73; BP 136/96; PULSE 72; RESP 16; TEMP 36; O2SAT 94
[2024-01-31 07:55] VITALS: BP 136/96; BP 99/66; PULSE 70; RESP 16; O2SAT 92
--- NOTE | 2024-01-31 07:57 | OP.COLON_ITS ---
Patient Name: Rachelle Evans Procedure Date: 01/31/2024 7:13 AM Date of : 1960 Age: 64 Procedure: Colonoscopy Indications: Screening for colorectal malignant neoplasm Providers: Marcial Davis MD Referring MD: Marcial Davis MD Medicines: Propofol per Anesthesia Patient Profile: This is a 64 year old female. Refer to note in patient chart for documentation of history and physical. Last Colonoscopy: more than 10 years ago. Complications: No immediate complications. Procedure: Pre-Anesthesia Assessment: - Prior to the procedure, a History and Physical was performed, and patient medications and allergies were reviewed. The patient's tolerance of previous anesthesia was also reviewed. The risks and benefits of the procedure and the sedation options and risks were discussed with the patient. All questions were answered, and informed consent was obtained. Prior Anticoagulants: The patient has taken no anticoagulant or antiplatelet agents. After reviewing the risks and benefits, the patient was deemed in satisfactory condition to undergo the procedure. After I obtained informed consent, the scope was passed under direct vision. Throughout the procedure, the patient's blood pressure, pulse, and oxygen saturations were monitored continuously. The pediatric colonoscope was introduced through the anus and advanced to the cecum, identified by appendiceal orifice and ileocecal valve. The colonoscopy was performed without difficulty. The patient tolerated the procedure well. The quality of the bowel preparation was good. The ileocecal valve, appendiceal orifice, and rectum were photographed. Scope In: 7:35:36 AM Scope Withdrawal Time 0 hours 6 minutes 22 seconds Scope Out: 7:48:01 AM Total Procedure Duration Time 0 hours 12 minutes 25 seconds Findings: The entire examined colon appeared normal on direct and retroflexion views. Impression: - The entire examined colon is normal on direct and retroflexion views. - No specimens collected. Recommendation: - Discharge patient to home. - Resume previous diet. - Continue present medications. - Repeat colonoscopy in 10 years for screening purposes. Procedure Code(s): --- Professional --- 66211, Colonoscopy, flexible; diagnostic, including collection of specimen(s) by brushing or washing, when performed (separate procedure) Diagnosis Code(s): --- Professional --- Z12.11, Encounter for screening for malignant neoplasm of colon CPT copyright 2022 [employer]. All rights reserved. The codes documented in this report are preliminary and upon auditing coder review may be revised to meet current compliance requirements. Marcial Davis MD 01/31/2024 7:56:43 AM This report has been signed electronically. Number of Addenda: 0 Note Initiated On: 01/31/2024 7:13 AM
--- NOTE | 2024-01-31 07:58 | OP.CCLET_ITS ---
01/31/2024 Mike Mosqueda [address] [place] [address] Re : Colonoscopy procedure for Rachelle Evans Dear Dr. Mosqueda This procedure was performed on Wednesday, January 31, 2024. My impressions and recommendations are as follows: Impressions : - The entire examined colon is normal on direct and retroflexion views. - No specimens collected. Recommendations : - Discharge patient to home. - Resume previous diet. - Continue present medications. - Repeat colonoscopy in 10 years for screening purposes. My findings are described in the full procedure note, which is enclosed. If I can be of further assistance, please feel free to contact me at Doctor phone number(s): , Work: . Sincerely, Marcial Davis MD 01/31/2024 7:56:43 AM This report has been signed electronically.
[2024-01-31 08:00] VITALS: BP 106/81; BP 136/96; PULSE 72; RESP 16; O2SAT 95
[2024-01-31 08:05] VITALS: BP 123/89; BP 136/96; PULSE 68; RESP 17; TEMP 36.3
[2024-01-31 08:15] VITALS: BP 136/96
== END 2024-01-31 08:25 | disposition home or self-care (01) ==
LOC: EN 06:25 → AC 06:26
PROVIDERS: PCP Family Medicine; Referring Provider Surgery; Visit Provider Surgery
PROC: 0DJD8ZZ Inspection of Lower Intestinal Tract, Via Natural or Artificial Opening Endoscopic (ICD-10-PCS; CPT 45378; principal; 2024-01-31 07:25)
DX: Z12.11 Encounter for screening for malignant neoplasm of colon (principal); I10 Essential (primary) hypertension; Z80.0 Family history of malignant neoplasm of digestive organs; F17.210 Nicotine dependence, cigarettes, uncomplicated; E03.9 Hypothyroidism, unspecified; Z90.710 Acquired absence of both cervix and uterus
CPT/HCPCS: G0121; J7120; J2405

== ENCOUNTER → 2024-03-14 | Outpatient (CLI) | payer MEDICARE, SELFPAY ==
[2024-03-14 13:32] LABS: Cholesterol 203 mg/dL (200); High Density Lipoprotein 43 mg/dL; T4 Free Direct 1.36 ng/dL (0.76-1.46); Thyroid Stim Hormone (TSH) 0.76 uIU/mL (0.358-3.74); Triglycerides 141 mg/dL; Very Low Density Lipoprotein 28 mg/dL (5-40)
== END | disposition home or self-care (01) ==
LOC: MFPLAB 10:37
PROVIDERS: PCP Family Medicine; Visit Provider Family Medicine
DX: E03.9 Hypothyroidism, unspecified (principal); E78.00 Pure hypercholesterolemia, unspecified
CPT/HCPCS: 36415; 80061; 84439; 84443

== ENCOUNTER → 2024-12-04 | Outpatient (CLI) | payer MEDICARE, SELFPAY ==
--- NOTE | 2024-12-04 13:29 | BI_ITS ---
EXAM: PROCEDURE: MA Mammogram Digital Screen CLINICAL HISTORY: Screening COMPARISON: Mammogram study dated 07/14/2023 TECHNIQUE: A bilateral screening mammogram was obtained with MLO and CC views of both breasts with digital breast tomosynthesis. BREAST CANCER RISK ASSESSMENT: Does not appear to have been calculated. FINDINGS: No suspicious masses, suspicious calcifications or other suspicious mammogram findings are seen in either breast. Benign vascular calcifications, macrocalcifications and round microcalcifications are seen in both breasts. CONCLUSION: Right Breast: BI-RADS category 2, benign findings Left Breast: BI-RADS category 2, benign findings Breast Composition: There are scattered areas of fibroglandular density. Recommendation: Annual screening mammography Reading Location: [id number]
--- NOTE | 2024-12-04 13:32 | BD_ITS ---
EXAM: DEXA BONE DENSITY STUDY 12/04/2024 REASON FOR EXAM: Patient is postmenopausal. F,64 y/o postmenopausal TECHNIQUE: DXA scan of the lumbar spine and total body less head, using make and model. REFERENCE LINKS: ISCD Pediatric Positions ISCD Adult Positions COMPARISON: DEXA examination dated 11/30/2022 FINDINGS: BMD and Z-SCORES DEXA examination of lumbar spine shows a bone mineral density to measure 0.706 grams/centimeter squared. T-score measures -3.2 and Z-score measures -1.2. There has been a significant decrease in the bone mineral density of the lumbar spine by 17.3% since the prior study dated 11/30/2022. DEXA examination of the left femoral neck shows a bone mineral density measures 0.610 grams/centimeter squared. T-score measures -2.2 and Z-score measures -0.5. Total bone mineral density of the left hip measures 0.757 grams/centimeter squared. T-score measures -1.5 and Z-score measures -0.2. There has been a decrease in the bone mineral density of the left hip by 2.3% since the prior study dated 11/30/2022. DEXA examination of the right femoral neck shows a bone mineral density measure 0.674 grams/centimeter squared. T-score measures -1.6 and Z-score measures 0. Total bone mineral density of the right hip measured 0.781 grams/centimeter squared. T-score measures -1.3 and Z-score measures 0. There has been a significant decrease in the bone mineral density of the right hip by 4.6% since the prior study dated 11/30/2022. Fracture Risk Calculation: FRAX (10-year Fracture Risk) Score: The 10 year fracture risk index for major osteoporotic fracture is 12% and for hip fracture is 2.1%. The patient meet the pharmacological treatment recommendations for prevention of osteoporosis BD/Dexa Bone Density Study IMPRESSION: Patient demonstrates osteoporosis of the lumbar spine and osteopenia of both hi ps. Recommend follow-up, if clinically warranted. Reading Location: [id number]
== END | disposition home or self-care (01) ==
LOC: OPBD 13:27
PROVIDERS: PCP Family Medicine; Referring Provider Family Medicine; Visit Provider Family Medicine
DX: Z12.31 Encounter for screening mammogram for malignant neoplasm of breast (principal); Z78.0 Asymptomatic menopausal state
CPT/HCPCS: 77063; 77067; 77080

== ENCOUNTER → 2024-12-13 | Outpatient (CLI) | payer MEDICARE, SELFPAY ==
[2024-12-13 09:28] LABS: Ionized Calcium Order ORDER TUBE
[2024-12-13 11:46] LABS: Anion Gap 11 (5-15); BUN 15 mg/dL (4-19); BUN/Creat Ratio 15.7 RATIO (10-20); Calcium,Total 9.7 mg/dL (7.6-11.0); Carbon Dioxide 22.9 mmol/L (21.0-32.0); Chloride 107 mmol/L (98-108); Creatinine, Serum 0.96 mg/dL (0.70-1.20); EST Glomerular Filtration Rate 66 (>60); Glucose 83 mg/dL (70-99); Magnesium 2.2 mg/dL (1.5-2.2); Phosphorus 2.8 mg/dL (2.7-4.5); Potassium 3.7 mmol/L (3.3-5.1); Sodium Level 140 mmol/L (133-145)
[2024-12-13 11:55] LABS: PTHIN 45 pg/mL (11-61)
[2024-12-13 12:37] LABS: Ionized Calcium 1.27 mmol/L (1.09-1.30)
== END | disposition home or self-care (01) ==
LOC: MFPLAB 08:27
PROVIDERS: PCP Family Medicine; Referring Provider Family Medicine; Visit Provider Family Medicine
DX: M81.0 Age-related osteoporosis without current pathological fracture (principal)
CPT/HCPCS: 36415; 80048; 82330; 83735; 83970; 84100; 84443

== ENCOUNTER 2024-12-17 20:23 | Emergency (ER) | payer MEDICARE, SELFPAY ==
[2024-12-17] VITALS (8 sets, daily range): BP systolic 168–198; BP diastolic 102–116; PULSE 61–72; RESP 16–18; TEMP 36.6–37.1; O2SAT 96–98; BMI 29.0
--- NOTE | 2024-12-17 20:58 | EDS_ITS ---
HPI History of Present Illness Chief Complaint: Hypertension PFSH PFS Medical History Wears dentures Scoliosis Low iron Smoker Family history of colon cancer in mother DDD (degenerative disc disease) Hypertension Hypothyroidism Home Medications ?Medication ?Instructions ?Recorded ?Last Taken ?Type levothyroxine 100 mcg tablet 100 mcg PO DAILY 08/22/22 01/31/24 History trazodone 100 mg tablet 100 mg PO QHS PRN insomnia 1 10/23/21 01/30/24 History losartan 25 mg tablet (Cozaar) 50 mg PO DAILY 01/27/24 01/30/24 History tizanidine 4 mg capsule 4 mg PO TID PRN muscle spast icity 01/27/24 01/30/24 History losartan 50 mg tablet 50 mg PO DAILY #30 tabs 04/05 Unknown Rx Allergy/AdvReac Type Severity Reaction Status Date / Time lisinopril AdvReac COUGH Verified 12/17/24 20:28 Family History Mother Colon cancer CVA (cerebral vascular accident) Cervical cancer Surgical History Hx of appendectomy H/O exploratory laparotomy History of bilateral oophorectomy History of total abdominal hysterectomy Hx of colonoscopy Social History (Updated 12/07/23 @ 10:51 by Tricia Valero) household members: other details: current occupational status: retired Smoking Status: Current some day smoker tobacco type: cigarettes details: Rare alcohol substance use type: does not use EXAM Physical Exam Const Vital Signs: 12/17/24 20:24 12/17/24 20:28 12/17/24 20:29 Temperature 98.7 F 98.7 F Temperature Source Oral Oral Pulse Rate 72 72 Respiratory Rate 16 16 Respiratory Effort Respiratory Pattern Blood Pressure 197/113 H 197/113 H 198/110 H Blood Pressure Mean 141 141 139 Pulse Ox 98 98 Oxygen Delivery Method Room Air Room Air 12/17/24 20:48 12/17/24 20:50 12/17/24 21:29 Temperature Temperature Source Pulse Rate 70 Respiratory Rate 16 Respiratory Effort Normal Respiratory Pattern Normal Blood Pressure 168/113 H 196/102 H Blood Pressure Mean 131 133 Pulse Ox 96 Oxygen Delivery Method Room Air 12/17/24 22:00 12/17/24 23:00 12/17/24 23:17 Temperature 97.9 F Temperature Source Pulse Rate 61 66 61 Respiratory Rate 18 18 18 Respiratory Effort Respiratory Pattern Blood Pressure 176/103 H 191/116 H 181/113 H Blood Pressure Mean 127 141 135 Pulse Ox 96 96 96 Oxygen Delivery Method [facility] [place] Medical decision making narrative: HISTORY OF PRESENT ILLNESS: Chief complaint: Hypertension 64-year-old female presents with hypertension. Notes at home her blood pressures been as high as 190 systolic. She notes dizziness at times her last few weeks. . Patient know she stopped taking blood pressure medicine approximate 1 year ago. She states what the doctors know. Notes she started Bactrim today for presumed UTI. Denies headache, chest pain, shortness of breath, leg swelling. Per family she is more confused today than usual. Although they note she has been having waxing waning confused episodes for greater than the last month. No falls reported. REVIEW OF SYSTEMS: Pertinent positives: Elevated blood pressure, dizziness Pertinent negatives: Headache, chest pain, shortness of breath PHYSICAL EXAM: Nursing triage notes reviewed, Vital signs reviewed Constitutional: please see [facility] HENT: MMM Eyes: Pupils equal round and reactive to light, Extraocular muscles intact Neck: No stridor, no JVD, full neck ROM Lungs: Clear to auscultation, No wheezing or rales. No increased work of breathing, no conversational dyspnea, no accessory muscle use, no nasal flaring. No respiratory distress noted Heart: Regular rate and rhythm, No murmurs, No rubs and No gallops, 2+ distal p ulses (radial, femoral, posterior tibial) in all extremities Abdomen: Soft, there is no tenderness, rigidity, rebound or guarding, no obvious peritoneal signs, no palpable pulsatile abdominal masses, no auscultated abdominal bruit : No CVAT Extremities: No edema Neuro: The patient was alert, oriented to person place and time, no new focal neurological deficits, cranial nerves II through XII intact, 5/5 strength in all present extremities. Intact sensation to light touch in all present extremities, 2+ reflexes bilateral patella tendons. Skin: No rash or lesions noted MEDICAL DECISION MAKING: Chief Complaint: please see HPI External records reviewed: Was on losartan 50 mg daily in the past. CT scan of the brain from 2021 shows no acute abnormalities Factors affecting care: Hypertension Social determinants of health: denies drug use History obtained from others: none Consults: none [facility] Narrative: Patient was initially hypertensive with a blood pressure 197/113, spontaneously improving to 168/113, she is afebrile and nontoxic-appearing. Exam without focal deficits. The patient was alert and orient x 3 however did appear confused and had lab consider abnormal behavior. I considered the following differential diagnosis: ICH, endorgan damage from hypertension, UTI, infectious encephalopathy, intoxication I obtained a broad lab and imaging workup to further elucidate etiology of the patient's complaints Gave p.o. losartan. ALL IMAGES (IF OBTAINED) HAVE BEEN PERSONALLY REVIEWED AND INTERPRETED BY MYSELF. CBC without leukocytosis, severe anemia, no thrombocytopenia. CMP without evidence of acute kidney injury, significant electrolyte abnormality, anion gap to suggest end organ hypo-perfusion, no evidence of metabolic acidosis with a normal bicarbonate, no evidence of hepatobiliary obstructive pathology. High-sensitivity troponin is negative, no evidence of myocardial ischemia Urinalysis shows no evidence of urinary inflammation suggestive of UTI Urine tox cream negative Serum alcohol negative I have personally reviewed the patient's chest x-ray. Chest x-ray is unremarkable for pulmonary edema, pneumothorax, pneumonia or focal cardiopulmonary abnormality. CT scan of the brain shows evidence of ICH The patient and/or family, caregivers express understanding. The patient and/or family, caregivers agrees with the plan. Shared decision making: I will have a discussion with the patient and or visitors regarding risk/benefits of further testing or admission. They will be made aware of of the risk/benefits inherent in this decision they will be given the opportunity to voice understanding. Total critical care time today provided was at least 0 [] minutes. This excludes separately billable procedures. Critical care time (if documented) is secondary to the patient having high probability of clinically significant/life threatening deterioration in the patient's condition which required my urgent intervention. Impression: 1. Hypertension 2. Medication noncompliance Dispo: discharge This note was generated with [employer] dictation software. It may contain incorrect words, spelling, and punctuation that were not noted in review of the chart prior to signing. Lab Data Labs: Laboratory Results - last 24 hr 12/17/24 12/17/24 21:24 21:35 WBC 5.6 RBC 4.46 Hgb 13.5 Hct 40.2 MCV 90.1 MCH 30.3 MCHC 33.6 RDW Std Deviation 40.7 RDW Coeff of Clara 12.4 Plt Count 263 MPV 8.9 Immature Gran % (Auto) 0.200 Neut % (Auto) 44.5 L Lymph % (Auto) 42.6 H [place] % (Auto) 9.3 Eos % (Auto) 2.7 Baso % (Auto) 0.7 Absolute Neuts (auto) 2.5 Absolute Lymphs (auto) 2.38 Nucleated RBC % 0 Sodium 141 Potassium 3.8 Chloride 107 Carbon Dioxide 23.7 Anion Gap 11 BUN 13 Creatinine 0.92 Estim Creat Clear Calc 69.28 Est GFR (MDRD) Non-Af 68 BUN/Creatinine Ratio 14.1 Glucose 96 Calcium 9.6 Total Bilirubin 0.36 AST 17 ALT 9 Alkaline Phosphatase 76 Troponin T High Sens < 6 Total Protein 6.7 Albumin 4.0 Globulin 2.7 Albumin/Globulin Ratio 1.5 Urine Color Yellow Urine Clarity Clear Urine pH 7.0 Ur Specific [place] 1.010 Urine Protein Negative Urine Glucose (UA) Normal Urine Ketones Negative Urine Occult Blood 25 H Urine Nitrite Negative Urine Bilirubin Negative Urine Urobilinogen Normal Ur Leukocyte Esterase Negative Urine RBC 0 SEEN Urine WBC 0-5 SEEN Ur Squamous Epith Cells 0 SEEN Urine Bacteria 0 SEEN Urine Mucus 0 SEEN Urine Opiates Screen NEGATIVE U Buprenorphine Qual NEGATIVE Ur Oxycodone Screen NEGATIVE Urine Methadone Screen NEGATIVE Urine Fentanyl Screen NEGATIVE Ur Barbiturates Screen NEGATIVE Ur Phencyclidine Scrn NEGATIVE Ur Amphetamines Screen NEGATIVE U Benzodiazepines Scrn NEGATIVE Urine Cocaine Screen NEGATIVE U Cannabinoids Screen NEGATIVE Ethyl Alcohol < 10.1 Radiography Diagnostic Testing: Clinical Impression(s) from Imaging Studies Brain CT 12/17/24 21:15 IMPRESSION: No acute intracranial abnormality. Reading Location: [facility]S [facility] 234 BEDS AT THE [facility] Chest X-Ray 12/17/24 21:43 IMPRESSION: No Acute Findings. Reading Location: [facility]CLUDE 234 BEDS AT THE [facility] Discharge Plan Triage Chief Complaint: Hypertension ED Provider: Usman Becerril Dx/Rx/DC Orders Instructions: ED Hypertension, Established Prescriptions: New losartan 50 mg tablet 50 mg PO DAILY Qty: 30 0RF No Action levothyroxine 100 mcg tablet 100 mcg PO DAILY trazodone 100 mg tablet 100 mg PO QHS PRN (Reason: insomnia) losartan [Cozaar] 25 mg tablet 50 mg PO DAILY tizanidine 4 mg capsule 4 mg PO TID PRN (Reason: muscle spasticity) Primary Care Provider: Yg Mosqueda Referrals: Yg Mosqueda MD [Primary Care Provider] - Activity Restrictions/Additional Instructions: Thank you for trusting us with your care today! Your labs images are reassuring today. Specifically no findings on the CT scan of your brain. Chest x-ray. Labs. No signs of damage to your heart or abnormal heart rhythms. No sign of electrolyte abnormalities, kidney damage. No sign of UTI. Please take Tylenol (2 pills, 650 mg), ibuprofen (2 pills, 400 mg) every 6 hours as needed for pain and fever control. Please take your blood pressure medicine as prescribed. Please try to assess your blood pressure in the morning and at night for the next 3 to 4 days to assess the trend in your blood pressures. This is evaluated for Jeff for your primary care physician to evaluate. Please return to the emergency department if your symptoms change or worsen. Please follow with your primary care physician for further outpatient evaluation and management. Print Language: Citizen Of [place] Disposition Disposition: Home, Self Care Discharge Date/Time: 12/17/24 23:28
--- NOTE | 2024-12-17 21:15 | EKG12_ITS ---
Test Reason : HTN Blood Pressure : */* mmHG Vent. Rate : 64 BPM Atrial Rate : 64 BPM P-R Int : 142 ms QRS Dur : 96 ms QT Int : 412 ms P-R-T Axes : 55 -16 55 degrees QTcB Int : 425 ms Normal sinus rhythm Nonspecific T wave abnormality Abnormal ECG Confirmed by MARILY FRAZIER, MARILYN ([id number]), map editor GRADY GREEN ([id number]) on 12/18/2024 8:10:57 AM Referred By: SAAD Confirmed By: MARILYN CALIXTO MD
--- NOTE | 2024-12-17 21:15 | CT_ITS ---
PROCEDURE: BRAIN/HEAD WITHOUT CONTRAST 12/17/2024 REASON FOR EXAM: CONFUSION TECHNIQUE: Head CT without intravenous contrast. Coronal and Sagittal reconstruction series were provided. One or more dose reduction techniques were used (e.g., Automated exposure control, adjustment of the mA and/or kV according to patient size, use of iterative reconstruction technique. COMPARISON: None FINDINGS: * ACUTE: No acute infarct or hemorrhage. No mass effect or herniation. * BRAIN PARENCHYMA: Signal intensities are within normal limits for age. * VENTRICLES/EXTRA-AXIAL SPACES: No hydrocephalus or extra-axial fluid collections. * EXTRACRANIAL STRUCTURES: Visualized osseous structures are normal. Soft tissues are normal. CT/Brain/Head without Contrast IMPRESSION: No acute intracranial abnormality. Reading Location: [facility]
[2024-12-17 21:31] LABS: Absolute Lymphocyte Count 2.38 X10^3/uL (0.83-4.51); Absolute Neutrophil Count 2.5 X10^3/uL (2.0-7.7); Basophil# 0.04 X10^3/uL; Basophil% 0.7 % (0-1); Eosinophil# 0.15 X10^3/uL; Eosinophils% 2.7 % (0-5); Hematocrit 40.2 % (37-47); Hemoglobin 13.5 g/dL (12.0-15.0); Lymphocyte # 2.38 X10^3/ul (0.83-4.51); Lymphocyte % 42.6 % (19-41); Mean Corp Hgb Conc 33.6 g/dL (32-36); Mean Corpuscular Hgb 30.3 pg (27.0-32.0); Mean Corpuscular Volume 90.1 fL (81-99); Mean Platelet Vol. 8.9 fl (6.2-12.0); Monocyte# 0.52 X10^3/uL; Monocyte% 9.3 % (0-10); NRBC Flagged by Analyzer 0 % (0-5); Neutrophil # 2.49 X10^3/uL (2.7-7.7); Neutrophil % 44.5 % (47-70); Platelet Count 263 K/mm3 (150-450); RBC Distribution Width CV 12.4 % (11.6-14.6); RBC Distribution Width SD 40.7 fl (35.1-43.9); Red Blood Count 4.46 M/mm3 (4.2-5.4); White Blood Count 5.6 K/mm3 (4.4-11.0)
[2024-12-17] MEDS: 0.9% Normal Saline (1000mL) 1,000 ML 999 ML IV (21:43)
--- NOTE | 2024-12-17 21:43 | RAD_ITS ---
PROCEDURE: CHEST 1 VIEW (PORTABLE) 12/17/2024 REASON FOR EXAM: HTN TECHNIQUE: Frontal view of the chest. COMPARISON: None FINDINGS: Hardware: None Heart: Heart size is mildly enlarged. Lungs: Mild bibasilar atelectasis. No focal consolidation. No pneumothorax. Bones: The bones are unremarkable. Other: RAD/Chest 1 View (Portable) IMPRESSION: No Acute Findings. Reading Location: [facility]
[2024-12-17 21:48] LABS: Alcohol, Blood (Medical)-Serum < 10.1 mg/dL (<=10.0)
[2024-12-17 21:50] LABS: ALB/GLOB Ratio 1.5 RATIO (0.9-2.4); AST(SGOT) 17 U/L (<=31); Alanine Aminotransfer ALT/SGPT 9 U/L (<=34); Alkaline Phosphatase 76 U/L (35-104); Anion Gap 11 (5-15); BUN 13 mg/dL (4-19); BUN/Creat Ratio 14.1 RATIO (10-20); Calcium,Total 9.6 mg/dL (7.6-11.0); Carbon Dioxide 23.7 mmol/L (21.0-32.0); Chloride 107 mmol/L (98-108); Creatinine, Serum 0.92 mg/dL (0.70-1.20); EST Glomerular Filtration Rate 68 (>60); Estimated Creatinine Clearance 69.28 ml/min (50-250); Globulin 2.7 g/dL (2.2-4.2); Glucose 96 mg/dL (70-99); Potassium 3.8 mmol/L (3.3-5.1); Protein, Total 6.7 g/dL (5.9-8.4); Sodium Level 141 mmol/L (133-145); Total Bilirubin 0.36 mg/dL (0.00-1.30); Troponin T High Sensitivity < 6 ng/L (<=14)
[2024-12-17 21:57] LABS: Bacteria 0 SEEN /hpf (None Seen); Mucous, Urine 0 SEEN /hpf (<or=2+); Red Blood Cells-Urine 0 SEEN /hpf (0-5); Squamous Epithelial Cells - UA 0 SEEN /hpf (5-10)
[2024-12-17 21:59] LABS: Color, Urine Yellow (Yellow); Glucose, Dipstick Normal (Normal); Ketone-Dipstick Negative (Negative); Leukocyte Esterase-Dipstick Negative /ul (Negative); Nitrite-Dipstick Negative (Negative); Occult Blood-Urine 25 /ul (Negative); Protein-Dipstick Negative (Negative); Urine Bilirubin Dipstick Negative (Negative); Urine Clarity Clear (Clear); Urine Urobilinogen Normal (Normal)
[2024-12-17 22:05] LABS: White Blood Cells 0-5 SEEN /hpf (0-5)
[2024-12-17 22:21] LABS: Amphetamine Urine NEGATIVE (<1000 ng/mL); Barbiturate Urine NEGATIVE (< 200 ng/mL); Benzodiazepine Urine NEGATIVE (< 200 ng/mL); Buprenorphine Urine NEGATIVE (< 200 ng/mL); Cocaine Urine NEGATIVE (< 300 ng/mL); Fentanyl, Urine NEGATIVE; Methadone Urine NEGATIVE (< 300 ng/mL); Opiates Urine NEGATIVE (< 300 ng/mL); Oxycodone, Urine NEGATIVE (< 100 ng/mL); PCP Urine NEGATIVE (< 25 ng/mL); THC Urine NEGATIVE (< 50 ng/mL)
[2024-12-17] MEDS: Losartan Potassium 50 MG Tablet PO (23:03)
== END 2024-12-17 23:28 | disposition home or self-care (01) ==
PROVIDERS: Emergency Provider Emergency Medicine; PCP Family Medicine; Visit Provider Emergency Medicine
DX: I10 Essential (primary) hypertension (principal); Z90.710 Acquired absence of both cervix and uterus; Z91.148 Patient's other noncompliance with medication regimen for other reason; N39.0 Urinary tract infection, site not specified; F17.210 Nicotine dependence, cigarettes, uncomplicated; E03.9 Hypothyroidism, unspecified; Z80.0 Family history of malignant neoplasm of digestive organs; Z79.899 Other long term (current) drug therapy
CPT/HCPCS: 70450; 71045; 80053; 80307; 81001; 82077; 84484; 85025; 93005; 96360; 96361; 99284; A4216

== ENCOUNTER 2025-03-06 06:35 | Inpatient (IN) | payer MEDICARE, SELFPAY ==
[2025-03-06] VITALS (33 sets, daily range): BP systolic 74–117; BP diastolic 6–84; PULSE 80–119; RESP 18–34; TEMP 36.4–39.7; O2SAT 85–98; BMI 27.3; BMI 28.6
--- NOTE | 2025-03-06 07:13 | ED.VIS.GI ---
HPI HPI - GI History of Present Illness Chief Complaint: Nausea/Vomiting/Diarrhea Narrative Narrative: 65-year-old female past medical history of hypertension, past abdominal surgery of hysterectomy presents with nausea, vomiting, and diarrhea that she experienced over the last 5 hours. She states started out at 2 AM with nausea and vomiting. She then developed loose stool and watery diarrhea. It seems that she is vomiting and/you are having diarrhea every 10 minutes. No blood in her emesis or in her bowel movements. She denies any abdominal pain. Her Cerone relates history that she came over for dinner yesterday evening, and had pork chops as well as everyone else. However, she is the only one that feels sick. While she denies any fever, she feels chilled. No exacerbating or alleviating factors. Additionally, she relays history that she thinks she ate a jar of old plums that is making her sick. [facility] Medical History Wears dentures Scoliosis Low iron Smoker Family history of colon cancer in mother DDD (degenerative disc disease) Hypertension Hypothyroidism Home Medications ?Medication ?Instructions ?Recorded ?Last Taken ?Type trazodone 100 mg tablet 100 mg PO QHS PRN insomnia 08/22/22 01/30/24 History tizanidine 4 mg capsule 4 mg PO TID PRN muscle spasticity 01/27/24 01/30/24 History hydrochlorothiazide 25 mg tablet 25 mg PO DAILY 03/06/25 Unknown History levothyroxine 112 mcg tablet 112 mcg PO DAILY 03/06/25 Unknown History losartan 100 mg tablet 100 mg PO DAILY 03/06/25 Unknown History Allergy/AdvReac Type Severity Reaction Status Date / Time lisinopril AdvReac COUGH Verified 03/06/25 06:36 Family History Mother Colon cancer CVA (cerebral vascular accident) Cervical cancer Surgical History Hx of appendectomy H/O exploratory laparotomy History of bilateral oophorectomy History of total abdominal hysterectomy Hx of colonoscopy Social History household members: other details: current occupational status: retired Smoking Status: Current some day smoker tobacco type: cigarettes details: Rare alcohol substance use type: does not use ROS ROS ED ROS Narrative Review of systems positive for chills, nausea, vomiting, and diarrhea. Denies abdominal pain, but does state that she was carrying table and chairs a few days ago so her abdominal muscles are sore. Denies fever, no exacerbating or alleviating factors. EXAM Physical Exam Narrative Exam Narrative: Afebrile. Vital signs noted. Nontoxic-appearing. Cardiovascular examination reveals mild tachycardia. Lungs are clear to auscultation bilaterally. Abdomen is soft with minimal diffuse tenderness, no guarding or rebound, positive bowel sounds. Neurological examination shows her to be awake, alert, and interactive, answering questions appropriately. Const Vital Signs: 03/06/25 06:37 03/06/25 06:39 03/06/25 07:55 Temperature 97.5 F L 97.5 F L 99.9 F H Temperature Source Axillary Axillary Oral Pulse Rate 119 H 119 H 96 Respiratory Rate 20 H 20 H 22 H Blood Pressure 115/67 115/67 97/84 H Blood Pressure Mean 83 83 88 Pulse Ox 97 96 93 Oxygen Delivery Method Room Air Room Air Nasal Cannula Oxygen Flow Rate (L/min) 2 03/06/25 08:03 03/06/25 08:36 03/06/25 09:00 Temperature 99.8 F H Temperature Source Oral Pulse Rate 103 H 96 Respiratory Rate 22 H 34 H Blood Pressure 85/57 L 89/59 L Blood Pressure Mean 66 69 Pulse Ox 97 96 Oxygen Delivery Method Room Air Nasal Cannula Nasal Cannula Oxygen Flow Rate (L/min) 2 2 Sepsis Attestation Sepsis Alert: Yes Sepsis Attestation: Agree w/Sepsis Date exam was performed: 03/06/25 Time exam was performed: 09:36 Possible Source of Sepsis: GI tract/intra-abdominal Sepsis Organ Dysfunction Criteria Present: SBP < 90 mmHg or MAP < 65 mmHg and Lactic Acid > 2 mmol/L Supportive Findings: Tachycardia, increased respiratory rate, hypotension MDM MDM MDM Narrative Medical decision making narrative: The differential diagnosis includes but not limited to gastroenteritis versus partial small bowel obstruction versus diverticulitis versus pancreatitis versus viral syndrome. Given her tachycardia, concern is also for mild dehydration or other electrolyte abnormality. She was administered ondansetron as well as a bolus of normal saline, 1 L. CBC, CMP, and lipase will be obtained. I do feel that she requires CT imaging as well. I reviewed her laboratory work and she is neutr I reviewed her CMP initially potassium 2.7. I repeated this as there may have been hemolysis and is 2.7. Hence I added a magnesium and reviewed and is normal at 1.6, BUN of 17 and creatinine slightly elevated at 1.36. Lactic acid elevated at 3.8. Lipase normal at 38 which I think is nonspecific. Urinalysis shows 5-10 WBCs but she is not having symptoms of dysuria. I reviewed the radiology report of the CT of the abdomen and pelvis which shows polycystic kidney disease which was seen previously with bilateral cysts on ultrasound. There are enlarged intrahepatic ducts and questionable inflammatory changes consistent with colitis. Given her clinical picture I favor more colitis. Neutropenic with a white count of 2.0 and absolute neutrophils low at 1.9. Hemoglobin normal at 13.0, platelet count 185. Chest x-ray interpreted by myself independently shows no focal consolidation, no pneumothorax, possible atelectasis right base. I reviewed the radiology report which confirms my independent interpretation and suspects pneumonitis. She was started on sepsis protocol and administered Zosyn 4.5 g intravenously. Blood cultures and urine cultures are currently pending. Lactic acidosis found, and given her clinical picture, I did order ultrasound of the right upper quadrant as well. Although on the CT they suspect cholecystectomy, patient denies that she had cholecystectomy. At this point in time, given her dip in her blood pressure, elevation of temperature, tachypnea, and initial tachycardia, patient was discussed with Dr. Mustafa for admission for sepsis. Patient is in stable condition currently. History & Record Review Discussion w/independent historian: Patient and Family Additional record(s) reviewed:: Prior labs Lab Data Attestation: I reviewed the patient's lab results. Labs: Laboratory Results - last 24 hr 03/06/25 03/06/25 03/06/25 06:42 08:12 08:24 WBC 2.0 L RBC 4.18 L Hgb 13.0 Hct 38.1 MCV 91.1 MCH 31.1 MCHC 34.1 RDW Std Deviation 41.5 RDW Coeff of Clara 12.6 Plt Count 185 MPV 9.2 Immature Gran % (Auto) 0.500 Neut % (Auto) 92.6 H Lymph % (Auto) 6.4 L [place] % (Auto) 0.5 Eos % (Auto) 0.0 Baso % (Auto) 0.0 Absolute Neuts (auto) 1.9 L Absolute Lymphs (auto) 0.13 L Nucleated RBC % 0 Platelet Estimate A Polychromasia 1+ Sodium 142 Potassium 2.7 L* 2.7 L* Chloride 108 Carbon Dioxide 20.2 L Anion Gap 15 BUN 17 Creatinine 1.36 H Estim Creat Clear Calc 44.99 L Est GFR (MDRD) Non-Af 43 L BUN/Creatinine Ratio 12.1 Glucose 123 H Lactic Acid 3.8 H* Calcium 9.1 Magnesium 1.6 Total Bilirubin 0.61 AST 46 H ALT 31 Alkaline Phosphatase 72 Total Protein 6.3 Albumin 3.7 Globulin 2.6 Albumin/Globulin Ratio 1.4 Lipase 38 Urine Color Yellow Urine Clarity Cloudy Urine pH 6.0 Ur Specific [place] 1.010 Urine Protein 100 H Urine Glucose (UA) Normal Urine Ketones Negative Urine Occult Blood 25 H Urine Nitrite Negative Urine Bilirubin Negative Urine Urobilinogen Normal Ur Leukocyte Esterase 25 H Urine RBC 0-5 SEEN Urine WBC 5-10 SEEN Ur Squamous Epith Cells 0-5 SEEN Urine Bacteria 3+ Urine Mucus 1+ Radiography Diagnostic Testing: Clinical Impression(s) from Imaging Studies Abdomen/Pelvis CT 03/06/25 07:50 IMPRESSION: Status post cholecystectomy and appendectomy. Mild degree of central intrahepatic biliary ductal dilatation and common bile duct dilatation. Pancreatic atrophy. Multiple bilateral renal cysts and nonobstructive right intrarenal calculi. Findings suggestive of possible colitis in the right hemicolon. Reading Location: [facility] Chest X-Ray 03/06/25 08:32 IMPRESSION: Lungs are somewhat hypoinflated. Increased right basilar airspace disease is seen, with differential diagnosis including Atelectasis and Pneumonitis. Given the appearance, favor the latter. No evidence of pulmonary edema. No pleural effusion or pneumothorax is seen. The cardiomediastinal silhouette is stable, without evidence of cardiomegaly. Reading Location: [place] [id number] Management Discussion w/another healthcare provider: Hospitalist (Dr. Mustafa) Discharge Plan Dx/Rx/DC Orders Clinical Impression: Neutropenia, Hypokalemia, Lactic acidosis, Colitis, Sepsis Disposition Disposition: Acute Care Hospital [facility]
[2025-03-06 07:20] LABS: Absolute Lymphocyte Count 0.13 X10^3/uL (0.83-4.51); Absolute Neutrophil Count 1.9 X10^3/uL (2.0-7.7); Hematocrit 38.1 % (37-47); Lymphocyte # 0.13 X10^3/ul (0.83-4.51); Lymphocyte % 6.4 % (19-41); Mean Corp Hgb Conc 34.1 g/dL (32-36); Mean Corpuscular Hgb 31.1 pg (27.0-32.0); Mean Corpuscular Volume 91.1 fL (81-99); Mean Platelet Vol. 9.2 fl (6.2-12.0); Monocyte# 0.01 X10^3/uL; Monocyte% 0.5 % (0-10); NRBC Flagged by Analyzer 0 % (0-5); Neutrophil # 1.88 X10^3/uL (2.7-7.7); Neutrophil % 92.6 % (47-70); POSITIVE DIFFERENTIAL YES; POSITIVE MORPHOLOGY YES; Platelet Count 185 K/mm3 (150-450); RBC Distribution Width CV 12.6 % (11.6-14.6); RBC Distribution Width SD 41.5 fl (35.1-43.9); Red Blood Count 4.18 M/mm3 (4.2-5.4)
[2025-03-06 07:21] LABS: Differential Indicated SCAN CRITERIA MET
[2025-03-06] MEDS: 0.9% Normal Saline (1000mL) 1,000 ML 999 ML IV ×4 (07:21→11:06)
[2025-03-06] MEDS: Ondansetron 4 MG/2 ML Vial IV (07:21)
--- NOTE | 2025-03-06 07:50 | CT_ITS ---
PROCEDURE: ABDOMEN/PELVIS W IV CONT ONLY 03/06/2025 REASON FOR EXAM: NAUSEA, VOMITING, DIARRHEA TECHNIQUE: ABDOMEN/PELVIS W IV CONT ONLY Coronal and Sagittal reconstruction series were provided. CONTRAST: Isovue-300 VOLUME: 100 mL One or more dose reduction techniques were used (e.g., Automated exposure control, adjustment of the mA and/or kV according to patient size, use of iterative reconstruction technique. RADIATION DOSE SUMMARY: CTDlvol: 15 mGy DLP: 1195.76 mGycm COMPARISON: None FINDINGS: Lung bases: Mild degree of increased markings at the lung bases suggestive of either dependent bibasilar atelectasis or linear scarring. No significant coronary artery calcification is seen. Liver: Minimal degree of central intrahepatic biliary ductal dilatation. The common bile duct measures 10.5 mm. Gallbladder: I suspect the patient to be status post cholecystectomy. Spleen: Normal size. Pancreas: Diffuse fatty atrophy. Adrenals: Unremarkable Kidneys: Multiple bilateral renal cysts more prominent in the right kidney. Nonobstructive tiny right intrarenal calculi. Prior sonogram dated July 12, 2023 demonstrated bilateral cysts. Bladder: Unremarkable Reproductive Organs: Prior hysterectomy. Adnexal regions are unremarkable. A pessary device is seen in the region of the cervix. Bowel: Questionable inflammatory changes seen in the right hemicolon suggestive of colitis. Appendix: The patient is status post appendectomy. Lymph nodes: Unremarkable. Vasculature: Mild diffuse atherosclerotic calcifications are noted. Peritoneum / Retroperitoneum: Unremarkable Bones: Degenerative changes of the spine. Levoconvex scoliosis. CT/Abdomen/Pelvis W IV Cont ONLY IMPRESSION: Status post cholecystectomy and appendectomy. Mild degree of central intrahepatic biliary ductal dilatation and common bile d uct dilatation. Pancreatic atrophy. Multiple bilateral renal cysts and nonobstructive right intrarenal calculi. Findings suggestive of possible colitis in the right hemicolon. Reading Location: [facility]
[2025-03-06 08:00] LABS: Lipase 38 U/L (13-75)
[2025-03-06 08:03] LABS: ALB/GLOB Ratio 1.4 RATIO (0.9-2.4); AST(SGOT) 46 U/L (<=31); Alanine Aminotransfer ALT/SGPT 31 U/L (<=34); Albumin, Serum 3.7 g/dL (3.4-4.8); Alkaline Phosphatase 72 U/L (35-104); Anion Gap 15 (5-15); BUN 17 mg/dL (4-19); BUN/Creat Ratio 12.1 RATIO (10-20); Calcium,Total 9.1 mg/dL (7.6-11.0); Carbon Dioxide 20.2 mmol/L (21.0-32.0); Chloride 108 mmol/L (98-108); Creatinine, Serum 1.36 mg/dL (0.70-1.20); EST Glomerular Filtration Rate 43 (>60); Estimated Creatinine Clearance 44.99 ml/min (50-250); Globulin 2.6 g/dL (2.2-4.2); Glucose 123 mg/dL (70-99); Potassium 2.7 mmol/L (3.3-5.1); Protein, Total 6.3 g/dL (5.9-8.4); Sodium Level 142 mmol/L (133-145); Total Bilirubin 0.61 mg/dL (0.00-1.30)
[2025-03-06 08:30] LABS: Platelet Estimate A (ADEQ); Polychromasia 1+
--- NOTE | 2025-03-06 08:32 | RAD_ITS ---
PROCEDURE: CHEST 1 VIEW (PORTABLE) 03/06/2025 REASON FOR EXAM: FEVER TECHNIQUE: Frontal view of the chest. COMPARISON: Chest x-ray of 12/17/2024 RAD/Chest 1 View (Portable) IMPRESSION: Lungs are somewhat hypoinflated. Increased right basilar airspace disease is seen, with differential diagnosis i ncluding Atelectasis and Pneumonitis. Given the appearance, favor the latter. No evidence of pulmonary edema. No pleural effusion or pneumothorax is seen. The cardiomediastinal silhouette is stable, without evidence of cardiomegaly. Reading Location: [place] [id number]
[2025-03-06 08:38] LABS: Color, Urine Yellow (Yellow); Glucose, Dipstick Normal (Normal); Ketone-Dipstick Negative (Negative); Leukocyte Esterase-Dipstick 25 /ul (Negative); Nitrite-Dipstick Negative (Negative); Occult Blood-Urine 25 /ul (Negative); Protein-Dipstick 100 mg/dl (Negative); Urine Bilirubin Dipstick Negative (Negative); Urine Clarity Cloudy (Clear); Urine Urobilinogen Normal (Normal)
--- NOTE | 2025-03-06 08:42 | US_ITS ---
PROCEDURE: ABDOMEN LIMITED 03/06/2025 REASON FOR EXAM: NAUSEA AND VOMITING Abdominal pain. COMPARISON: Prior CT scan done earlier in the day. FINDINGS: Liver: Diffusely echogenic suggesting fatty infiltration. Hepatomegaly. Gallbladder: There is a contracted stone filled gallbladder. Gallbladder wall is thickened measuring 4.6 mm. Common bile duct: Slightly dilated measuring 9.5 mm. . Pancreas: Mildly dilated pancreatic duct. Other: Right renal cysts. No right upper quadrant ascites. US/Abdomen Limited IMPRESSION: Hepatomegaly and fatty infiltration of the liver. Contracted stone filled gallbladder. Reading Location: [id number]
[2025-03-06] MEDS: Piperacil/Tazobactam 4.5 GM in 0.9% Normal Saline (100mL MB+) 100 ML IV (08:44)
[2025-03-06 08:46] LABS: Red Blood Cells-Urine 0-5 SEEN /hpf (0-5); Squamous Epithelial Cells - UA 0-5 SEEN /hpf (5-10); White Blood Cells 5-10 SEEN /hpf (0-5)
[2025-03-06 08:47] LABS: Bacteria 3+ /hpf (None Seen); Mucous, Urine 1+ /hpf (<or=2+)
[2025-03-06 09:05] LABS: Magnesium 1.6 mg/dL (1.5-2.2)
[2025-03-06 09:10] LABS: Lactic Acid 3.8 mmol/L (0.0-2.0)
[2025-03-06 09:11] LABS: Potassium 2.7 mmol/L (3.3-5.1)
[2025-03-06] MEDS: fentaNYL 100 MCG/2 ML Ampul 50 MCG IV (10:00)
--- NOTE | 2025-03-06 10:17 | ED.RN ---
Called [facility] for a midline per Dr Porter's request.
[2025-03-06] MEDS: Acetaminophen 325 MG Tablet 650 MG PO ×2 (10:30→16:24)
[2025-03-06] MEDS: Potassium Chloride 10mEq/100mL 10 MEQ/100 ML IV.SOLN. 100 MEQ IV BOLUS ×4 (11:13→13:55)
--- NOTE | 2025-03-06 11:54 | EX.PCM.CONCC ---
Assessment & Plan Assessment/Plan (1) Sepsis: PLAN: Plan RECOMMENDATIONS: 1. Initiate Levophed with a goal to maintain a mean arterial pressure at or above 65 mmHg. 2. Continue empiric antimicrobials. 3. Check enteric pathogen panel. 4. Blood and urine cultures are pending. 5. Reflex lactate level. 6. Subcutaneous heparin for DVT prophylaxis. 7. Aggressive electrolyte repletion. IMPRESSIONS: 1. Septic shock The patient presented with sepsis due to possible urinary tract source of infection with acute sepsis related organ dysfunction as evidenced by lactic acidemia and fluid refractory hypotension, requiring vasopressor support. The patient will be continued on Levophed to maintain a mean arterial pressure at or above 65 mmHg. PICC line has been placed. The patient will be continued on empiric antimicrobials, pending infectious workup. Given her presenting diarrhea, enteric pathogen panel will be completed. Reflex lactate is currently pending. 2. Acute kidney injury/hypokalemia Likely related to hypotension and gastrointestinal volume loss in the setting of diarrhea. Continue volume resuscitation and vasopressor support to maintain hemodynamic stability. Aggressive electrolyte repletion as ordered. 3. History of tobacco dependency in remission/hypertension/hypothyroidism Complicates care, management, recovery and prognosis. Continue to hold home antihypertensives. Remainder of supportive care as noted above. TIME: 35 minutes of critical care time, independent of procedures, was spent addressing the patient's septic shock, acute kidney injury, review of all data and collaboration with the care team. HPI Consult Data Date of Consult: 03/06/25 HPI Narrative Reason for Consultation: Septic shock HPI Narrative: The patient is a 65-year-old female, with a history as outlined below, who presented to the emergency department on March 06 with complaints of nausea, vomiting and diarrhea which began acutely overnight. The patient has a known medical history that includes hypertension and hypothyroidism. The patient denied any recent antimicrobial use. On presentation to the emergency department, the patient was noted to have a temperature of 97.5 ?F. She was, however, tachycardic and tachypneic with borderline hemodynamics. The patient progressively became febrile while in the emergency department with worsening hypotension. Laboratory evaluation was notable for a white blood cell count of 2000. Chemistry profile was notable for a potassium of 2.7 and creatinine of 1.36. Lactate was elevated at 3.8. Lipase was within normal limits. Total bilirubin was normal. Urine analysis was positive for leukocyte esterase and 3+ urine bacteria. CT abdomen demonstrated findings suggestive of possible colitis in the right hemicolon. Chest x-ray demonstrated no evidence of focal consolidation or infiltrate. Although the patient was subsequently ordered to receive supplemental IV fluids, she remained persistently hypotensive. Antimicrobials were initiated. The patient was subsequently admitted to the medical intensive care unit for further management. On arrival to the ICU, and after having completed her fluids, the patient was still persistently hypotensive. Therefore, Levophed was ordered to be initiated. PICC line was placed. [facility] Medical History Wears dentures Scoliosis Low iron Smoker Family history of colon cancer in mother DDD (degenerative disc disease) Hypertension Hypothyroidism Home Medications ?Medication ?Instructions ?Recorded ?Last Taken ?Type trazodone 100 mg tablet 100 mg PO QHS PRN insomnia 08/22/22 01/30/24 History tizanidine 4 mg capsule 4 mg PO TID PRN muscle spasticity 01/27/24 01/30/24 History hydrochlorothiazide 25 mg tablet 25 mg PO DAILY 03/06/25 Unknown History levothyroxine 112 mcg tablet 112 mcg PO DAILY 03/06/25 Unknown History losartan 100 mg tablet 100 mg PO DAILY 03/06/25 Unknown History Allergy/AdvReac Type Severity Reaction Status Date / Time lisinopril AdvReac COUGH Verified 03/06/25 06:36 Family History Mother Colon cancer CVA (cerebral vascular accident) Cervical cancer Surgical History Hx of appendectomy H/O exploratory laparotomy History of bilateral oophorectomy History of total abdominal hysterectomy Hx of colonoscopy Social History household members: other details: current occupational status: retired Smoking Status: Former smoker details: Rare alcohol substance use type: does not use ROS ROS Narrative 10 systems were reviewed with pertinent positives as noted in the HPI above. Physical Exam Const alert, oriented x3 and no apparent distress General Appearance: cooperative HEENT normocephalic and head/scalp atraumatic HEENT Narrative: Dry mucous membranes. Eyes PERRL, EOMs intact bilaterally and conjunctivae normal Neck supple General: trachea midline Chest inspection of chest normal Resp normal respiratory effort Auscultation: Negative for rales, rhonchi or wheezes Cardio S1 normal heart sound and S2 normal heart sound Rate: tachycardic GI soft to palpation and non-tender Extremity no clubbing, cyanosis or edema Skin no rashes or lesions noted Neuro CN's II-XII intact bilaterally, moves all extremities and no focal motor deficits Psych cooperative and affect normal Lab / Micro Data 03/06/25 06:42 03/06/25 08:12 Labs: Laboratory Results - last 24 hr 03/06/25 06:42: WBC 2.0 L, RBC 4.18 L, Hgb 13.0, Hct 38.1, MCV 91.1, MCH 31.1, MCHC 34.1, RDW Std Deviation 41.5, RDW Coeff of [place] 12.6, Plt Count 185, MPV 9.2, Immature Gran % (Auto) 0.500, Neut % (Auto) 92.6 H, Lymph % (Auto) 6.4 L, [place] % (Auto) 0.5, Eos % (Auto) 0.0, Baso % (Auto) 0.0, Absolute Neuts (auto) 1.9 L, Absolute Lymphs (auto) 0.13 L, Nucleated RBC % 0, Platelet Estimate A, Polychromasia 1+, Sodium 142, Potassium 2.7 L*, Chloride 108, Carbon Dioxide 20.2 L, Anion Gap 15, BUN 17, Creatinine 1.36 H, Estim Creat Clear Calc 44.99 L, Est GFR (MDRD) Non-Af 43 L, BUN/Creatinine Ratio 12.1, Glucose 123 H, Calcium 9.1, Total Bilirubin 0.61, AST 46 H, ALT 31, Alkaline Phosphatase 72, Total Protein 6.3, Albumin 3.7, Globulin 2.6, Albumin/Globulin Ratio 1.4, Lipase 38 03/06/25 08:12: Potassium 2.7 L*, Lactic Acid 3.8 H*, Magnesium 1.6 03/06/25 08:24: Urine Color Yellow, Urine Clarity Cloudy, Urine pH 6.0, Ur Specific [place] 1.010, Urine Protein 100 H, Urine Glucose (UA) Normal, Urine Ketones Negative, Urine Occult Blood 25 H, Urine Nitrite Negative, Urine Bilirubin Negative, Urine Urobilinogen Normal, Ur Leukocyte Esterase 25 H, Urine RBC 0-5 SEEN, Urine WBC 5-10 SEEN, Ur Squamous Epith Cells 0-5 SEEN, Urine Bacteria 3+, Urine Mucus 1+ Micro: Microbiology 03/06/25 08:15 Mucosa - Nose SARS-CoV-2, Influenza & RSV (PCR) - Final Imaging Radiology Impression Abdomen/Pelvis CT 03/06/25 07:50 IMPRESSION: Status post cholecystectomy and appendectomy. Mild degree of central intrahepatic biliary ductal dilatation and common bile duct dilatation. Pancreatic atrophy. Multiple bilateral renal cysts and nonobstructive right intrarenal calculi. Findings suggestive of possible colitis in the right hemicolon. Reading Location: [id number] Chest X-Ray 03/06/25 08:32 IMPRESSION: Lungs are somewhat hypoinflated. Increased right basilar airspace disease is seen, with differential diagnosis including Atelectasis and Pneumonitis. Given the appearance, favor the latter. No evidence of pulmonary edema. No pleural effusion or pneumothorax is seen. The cardiomediastinal silhouette is stable, without evidence of cardiomegaly. Reading Location: [facility] Abdomen Ultrasound 03/06/25 08:42 IMPRESSION: Hepatomegaly and fatty infiltration of the liver. Contracted stone filled gallbladder. Reading Location: [id number] Sepsis Attestation Sepsis Alert: Yes Sepsis Attestation: Agree w/Sepsis Date exam was performed: 03/06/25 Time exam was performed: 13:02 Possible Source of Sepsis: Genitourinary Sepsis Organ Dysfunction Criteria Present: SBP < 90 mmHg or MAP < 65 mmHg and Lactic Acid > 2 mmol/L Fluid Resuscitation Fluid resuscitation indicated?: Yes Fluid Resuscitation ordered: 30 ml/kg fluid bolus ordered Sepsis Note Date exam was performed: 03/06/25 Time exam was performed: 13:03 Sepsis Attestation: Sepsis re-evaluation was performed Response to fluids: Non Fluid responsive hypotension and Vasopressors started Charges/Coding Procedures Hospitalists Procedures: 52327 Critical Care 1st Hr
[2025-03-06] MEDS: KCL 20MEQ in 0.9% NS 20 MEQ/1,000 ML IV.SOLN. 150 MEQ IV ×2 (11:56→18:08)
[2025-03-06] MEDS: Heparin Injection (Vial) 5,000 UNIT/ML VIAL 5000 UNIT SC ×2 (12:10→21:08)
[2025-03-06] MEDS: Norepinephrine 8 MG in 0.9% Normal Saline (250mL Bag) 242 ML 9.4 MG CONT INF (12:26)
[2025-03-06 12:31] LABS: Reflex Lactate? Y
[2025-03-06] MEDS: Piperacil/Tazobactam 3.375 GM in 0.9% Normal Saline (50mL MB+) 50 ML IV ×2 (13:54→21:08)
[2025-03-06 16:14] LABS: Lactic Acid 3.2 mmol/L (0.0-2.0)
--- NOTE | 2025-03-06 18:11 | PCM.HP.STD ---
HPI - General General Date of Admission: 03/06/25 Date of Service: 03/06/25 Chief Complaint: Nausea, vomiting, diarrhea, and malaise. HPI Narrative BERTHA BLUM, is a 65 F who presents to the emergency room at [facility] with complaints of nausea, vomiting, and diarrhea over the last several hours. Patient denied any abdominal pain. Workup in the emergency room included a CBC which was abnormal for white blood cell count of 2, hemoglobin was normal, chemistry profile was abnormal for potassium of 2.7 and a creatinine of 1.36. Lactic acid was elevated at 3.8, and UA showed +3 bacteria, 5-10 white blood cells and 0-[address] of the abdomen and pelvis was obtained, there is a mild degree of central intrahepatic biliary ductal dilatation and common bile duct dilatation, there were findings suggestive of possible colitis in the right hemicolon. Chest x-ray showed increased right basilar airspace disease which could possibly be atelectasis or pneumonia. Abdominal ultrasound showed a contracted stone filled gallbladder and hepatomegaly and fatty infiltration of the liver. Patient was noted to be hypotensive and required 2 L of oxygen at rest. It was felt that the patient had septic shock from a urinary tract infection along with possible pneumonia and hypokalemia, she will be admitted to the ICU, a midline will be inserted and she may need pressor agents due to her low blood pressure. She will be seen in consultation by critical care, she will be maintained on IV Zosyn and be given fluids and potassium replacement. Labs will be monitored. [facility] Medical History Wears dentures Scoliosis Low iron Smoker Family history of colon cancer in mother DDD (degenerative disc disease) Hypertension Hypothyroidism Home Medications ?Medication ?Instructions ?Recorded ?Last Taken ?Type trazodone 100 mg tablet 100 mg PO QHS PRN insomnia 08/22/22 01/30/24 History tizanidine 4 mg capsule 4 mg PO TID PRN muscle spasticity 01/27/24 01/30/24 History hydrochlorothiazide 25 mg tablet 25 mg PO DAILY 03/06/25 Unknown History levothyroxine 112 mcg tablet 112 mcg PO DAILY 03/06/25 Unknown History losartan 100 mg tablet 100 mg PO DAILY 03/06/25 Unknown History Allergy/AdvReac Type Severity Reaction Status Date / Time lisinopril AdvReac COUGH Verified 03/06/25 06:36 Family History Mother Colon cancer CVA (cerebral vascular accident) Cervical cancer Surgical History Hx of appendectomy H/O exploratory laparotomy History of bilateral oophorectomy History of total abdominal hysterectomy Hx of colonoscopy Social History household members: other details: current occupational status: retired Smoking Status: Former smoker details: Rare alcohol substance use type: does not use ROS Constitutional Constitutional: Reports fatigue and malaise; Denies anorexia, change in weight, chills, fever(s), night sweats or weakness Eyes Eyes: Denies blurry vision, change in vision, discharge from eye(s) or eye pain Cardiovascular Cardiovascular: Denies chest pain, claudication, dyspnea on exertion, edema or palpitations Respiratory/Chest Respiratory/Chest: Denies cough, dyspnea, excessive phlegm production, hemoptysis, productive cough, shortness of breath at rest or shortness of breath with exertion Gastrointestinal Gastrointestinal: Denies abdominal pain, constipation, diarrhea, hematemesis, hematochezia, melena, nausea or vomiting Genitourinary Genitourinary: Reports difficulty urinating; Denies dysuria, hematuria, urinary frequency, urinary hesitancy, urinary incontinence or urinary urgency Musculoskeletal Musculoskeletal: Denies back pain, joint pain, joint stiffness, joint swelling, myalgias or neck pain Neurologic Neurologic: Denies abnormal gait, abnormal speech, confusion, dizziness, focal weakness, headache(s), loss of vision, numbness, other visual disturbances, paresthesias, syncope or tingling Psychiatric Psychiatric: Denies anxiety, cognitive impairment, depression, irritability, mood swings or suicidal ideation Endocrine Endocrinology: Denies change in body appearance, cold intolerance, excessive sweating, heat intolerance, polydipsia or polyuria Hematologic/Lymphatic Hematologic/Lymphatic: Denies none, anemia, easy bleeding, easy bruising or lymphadenopathy Allergic/Immunologic Allergic/Immunologic: Denies rhinitis, urticaria, eczemia or asthma Vital Signs Vital Signs Vital Signs: 03/06/25 06:37 03/06/25 06:39 03/06/25 07:55 Temperature 97.5 F L 97.5 F L 99.9 F H Temperature Source Axillary Axillary Oral Pulse Rate 119 H 119 H 96 Respiratory Rate 20 H 20 H 22 H Respiratory Pattern Blood Pressure 115/67 115/67 97/84 H Blood Pressure Mean 83 83 88 Blood Pressure Source Blood Pressure Position Blood Pressure Location Pulse Ox 97 96 93 Oxygen Delivery Method Room Air Room Air Nasal Cannula Oxygen Flow Rate (L/min) 2 03/06/25 08:03 03/06/25 08:36 03/06/25 09:00 Temperature 99.8 F H Temperature Source Oral Pulse Rate 103 H 96 Respiratory Rate 22 H 34 H Respiratory Pattern Blood Pressure 85/57 L 89/59 L Blood Pressure Mean 66 69 Blood Pressure Source Blood Pressure Position Blood Pressure Location Pulse Ox 97 96 Oxygen Delivery Method Room Air Nasal Cannula Nasal Cannula Oxygen Flow Rate (L/min) 2 2 03/06/25 10:03 03/06/25 10:17 03/06/25 10:45 Temperature 101.7 F H 103.5 F H Temperature Source Core Pulse Rate 94 92 97 Respiratory Rate 18 19 H 18 Respiratory Pattern Blood Pressure 87/59 L 88/58 L 90/59 L Blood Pressure Mean 68 68 69 Blood Pressure Source Monitor Blood Pressure Position Semi-Fowlers Blood Pressure Location Left Arm Pulse Ox 91 92 85 Oxygen Delivery Method Nasal Cannula Nasal Cannula Oxygen Flow Rate (L/min) 2 2 03/06/25 11:00 03/06/25 11:15 03/06/25 11:28 Temperature 103.5 F H 103.5 F H Temperature Source Core Core Pulse Rate 96 93 Respiratory Rate 27 H 26 H Respiratory Pattern Blood Pressure 74/57 L 76/56 L Blood Pressure Mean 62 62 Blood Pressure Source Monitor Monitor Blood Pressure Position Semi-Fowlers Semi-Fowlers Blood Pressure Location Left Arm Left Arm Pulse Ox 86 88 Oxygen Delivery Method Nasal Cannula Nasal Cannula Nasal Cannula Oxygen Flow Rate (L/min) 4 6 03/06/25 11:30 03/06/25 11:45 03/06/25 12:00 Temperature 103.4 F H 102.9 F H 102.9 F H Temperature Source Core Core Temporal Pulse Rate 93 92 85 Respiratory Rate 20 H 24 H 25 H Respiratory Pattern Blood Pressure 79/48 L 82/51 L 81/52 L Blood Pressure Mean 58 61 61 Blood Pressure Source Monitor Monitor Monitor Blood Pressure Position Semi-Fowlers Semi-Fowlers Semi-Fowlers Blood Pressure Location Left Arm Left Arm Left Arm Pulse Ox 95 95 96 Oxygen Delivery Method Nasal Cannula Nasal Cannula Nasal Cannula Oxygen Flow Rate (L/min) 6 6 6 03/06/25 12:07 03/06/25 12:26 03/06/25 12:45 Temperature 102.2 F H Temperature Source Temporal Pulse Rate 85 85 Respiratory Rate 26 H Respiratory Pattern Blood Pressure 83/50 L 76/53 L Blood Pressure Mean 61 60 Blood Pressure Source Blood Pressure Position Semi-Fowlers Blood Pressure Location Left Arm Pulse Ox 98 96 Oxygen Delivery Method Nasal Cannula Nasal Cannula Oxygen Flow Rate (L/min) 2 6 03/06/25 13:00 03/06/25 13:15 03/06/25 13:30 Temperature 102 F H Temperature Source Core Pulse Rate 85 84 83 Respiratory Rate 31 H Respiratory Pattern Blood Pressure 88/59 L 87/59 L 97/62 Blood Pressure Mean 68 68 73 Blood Pressure Source Monitor Monitor Monitor Blood Pressure Position Semi-Fowlers Semi-Fowlers Blood Pressure Location Left Arm Left Arm Pulse Ox 96 Oxygen Delivery Method Nasal Cannula Oxygen Flow Rate (L/min) 6 03/06/25 13:45 03/06/25 14:00 03/06/25 15:00 Temperature 101.7 F H 101.3 F H Temperature Source Core Core Pulse Rate 87 86 86 Respiratory Rate 29 H 28 H Respiratory Pattern Blood Pressure 96/63 95/57 L 95/64 Blood Pressure Mean 74 69 74 Blood Pressure Source Monitor Monitor Monitor Blood Pressure Position Semi-Fowlers Semi-Fowlers Blood Pressure Location Left Arm Left Arm Pulse Ox 97 98 Oxygen Delivery Method Nasal Cannula Nasal Cannula Oxygen Flow Rate (L/min) 6 6 03/06/25 16:00 03/06/25 16:00 03/06/25 17:00 Temperature 101.2 F H 101.2 F H Temperature Source Core Core Pulse Rate 86 88 Respiratory Rate 31 H 33 H Respiratory Pattern Tachypnea Blood Pressure 104/46 L 117/64 Blood Pressure Mean 65 81 Blood Pressure Source Monitor Monitor Blood Pressure Position Semi-Fowlers Semi-Fowlers Blood Pressure Location Left Arm Left Arm Pulse Ox 98 97 Oxygen Delivery Method Nasal Cannula Nasal Cannula Nasal Cannula Oxygen Flow Rate (L/min) 6 4 Weight Weight: 85.502 kg Body Mass Index (BMI) 28.6 Physical Exam Const alert, oriented x3 and no apparent distress General Appearance: cooperative, well kempt and well developed Orientation / Consciousness: awake, oriented to person, oriented to place and oriented to time HEENT normocephalic, head/scalp atraumatic and moist oral mucous membranes Eyes PERRL, EOMs intact bilaterally and conjunctivae normal Neck supple, no JVD, thyroid normal and no carotid bruits General: trachea midline Resp normal respiratory effort, no retractions, no use of accessory muscles and clear to auscultation bilaterally Auscultation: Negative for rales, rhonchi or wheezes Cardio regular rate, regular rhythm, S1 normal heart sound, S2 normal heart sound, no murmurs, no rub and no gallops GI normal to inspection, nondistended, normoactive bowel sounds, soft to palpation, non-tender and non-distended Extremity no clubbing, cyanosis or edema Skin no rashes or lesions noted General Skin Exam: no breakdown Neuro oriented x3, CN's II-XII intact bilaterally, moves all extremities, no focal motor deficits and no sensory deficits noted Sensorium / Orientation: awake and alert Speech: speech normal Psych affect normal Results Lab / Micro Data 03/06/25 06:42 03/06/25 08:12 Labs: Laboratory Results - last 24 hr 03/06/25 06:42: WBC 2.0 L, RBC 4.18 L, Hgb 13.0, Hct 38.1, MCV 91.1, MCH 31.1, MCHC 34.1, RDW Std Deviation 41.5, RDW Coeff of [place] 12.6, Plt Count 185, MPV 9.2, Immature Gran % (Auto) 0.500, Neut % (Auto) 92.6 H, Lymph % (Auto) 6.4 L, [place] % (Auto) 0.5, Eos % (Auto) 0.0, Baso % (Auto) 0.0, Absolute Neuts (auto) 1.9 L, Absolute Lymphs (auto) 0.13 L, Nucleated RBC % 0, Platelet Estimate A, Polychromasia 1+, Sodium 142, Potassium 2.7 L*, Chloride 108, Carbon Dioxide 20.2 L, Anion Gap 15, BUN 17, Creatinine 1.36 H, Estim Creat Clear Calc 44.99 L, Est GFR (MDRD) Non-Af 43 L, BUN/Creatinine Ratio 12.1, Glucose 123 H, Calcium 9.1, Total Bilirubin 0.61, AST 46 H, ALT 31, Alkaline Phosphatase 72, Total Protein 6.3, Albumin 3.7, Globulin 2.6, Albumin/Globulin Ratio 1.4, Lipase 38 03/06/25 08:12: Potassium 2.7 L*, Lactic Acid 3.8 H*, Magnesium 1.6 03/06/25 08:24: Urine Color Yellow, Urine Clarity Cloudy, Urine pH 6.0, Ur Specific [place] 1.010, Urine Protein 100 H, Urine Glucose (UA) Normal, Urine Ketones Negative, Urine Occult Blood 25 H, Urine Nitrite Negative, Urine Bilirubin Negative, Urine Urobilinogen Normal, Ur Leukocyte Esterase 25 H, Urine RBC 0-5 SEEN, Urine WBC 5-10 SEEN, Ur Squamous Epith Cells 0-5 SEEN, Urine Bacteria 3+, Urine Mucus 1+ 03/06/25 14:00: Lactic Acid 3.2 H* Micro: Microbiology 03/06/25 08:15 Mucosa - Nose SARS-CoV-2, Influenza & RSV (PCR) - Final Imaging Radiology Impression Abdomen/Pelvis CT 03/06/25 07:50 IMPRESSION: Status post cholecystectomy and appendectomy. Mild degree of central intrahepatic biliary ductal dilatation and common bile duct dilatation. Pancreatic atrophy. Multiple bilateral renal cysts and nonobstructive right intrarenal calculi. Findings suggestive of possible colitis in the right hemicolon. Reading Location: [facility] Chest X-Ray 03/06/25 08:32 IMPRESSION: Lungs are somewhat hypoinflated. Increased right basilar airspace disease is seen, with differential diagnosis including Atelectasis and Pneumonitis. Given the appearance, favor the latter. No evidence of pulmonary edema. No pleural effusion or pneumothorax is seen. The cardiomediastinal silhouette is stable, without evidence of cardiomegaly. Reading Location: [facility] Abdomen Ultrasound 03/06/25 08:42 IMPRESSION: Hepatomegaly and fatty infiltration of the liver. Contracted stone filled gallbladder. Reading Location: [id number] Assessment & Plan Assessment/Plan (1) Sepsis: PLAN: Plan 1. Septic shock-secondary to acute urinary tract infection-again patient was admitted to ICU, she will receive IV fluids and most likely will be placed on pressor agents for her hypotension, blood pressure will be monitored, patient is on Zosyn. Patient will be seen by critical care. #2 hypokalemia-patient will be given potassium replacement, labs will be monitored #3 hypoxia-secondary to septic shock, pulse ox will be monitored, patient is on supplemental nasal cannula oxygen #4 acute urinary tract infection-patient is on Zosyn, await cultures #5 hypothyroidism-patient is on Synthroid #6 history of essential hypertension-patient's blood pressure medications will be held at this time #7 chronic lower back pain-patient takes Zanaflex, she will remain on this medication Total clinical time spent by myself addressing the patient's medical issues, reviewing all of her data, and collaborating with patient's care team: 75 minutes Charges/Coding Visit Charges Inpatient E&M: 11541 Init Hosp L3
[2025-03-06] MEDS: Norepinephrine 8 MG in 0.9% Normal Saline (250mL Bag) 242 ML 37.5 MG CONT INF (18:49)
[2025-03-06] MEDS: tiZANidine HCl 2 MG Tablet 4 MG PO (21:09)
[2025-03-07] VITALS (38 sets, daily range): BP systolic 86–130; BP diastolic 54–84; PULSE 58–84; RESP 18–33; TEMP 37.2–38; O2SAT 96–100; BMI 30.2
[2025-03-07] MEDS: KCL 20MEQ in 0.9% NS 20 MEQ/1,000 ML IV.SOLN. 150 MEQ IV ×3 (00:56→14:19)
[2025-03-07] MEDS: Norepinephrine 8 MG in 0.9% Normal Saline (250mL Bag) 242 ML 28.1 MG CONT INF (03:00)
[2025-03-07] MEDS: Acetaminophen 325 MG Tablet 650 MG PO ×3 (04:30→17:08)
[2025-03-07] MEDS: tiZANidine HCl 2 MG Tablet 4 MG PO ×3 (05:29→21:08)
[2025-03-07] MEDS: Piperacil/Tazobactam 3.375 GM in 0.9% Normal Saline (50mL MB+) 50 ML IV ×3 (05:29→22:59)
[2025-03-07] MEDS: 0.9% Saline Lock 10 ML Syringe IV (05:32)
[2025-03-07] MEDS: Levothyroxine 112 MCG Tablet PO (05:32)
[2025-03-07 05:51] LABS: Hematocrit 29.6 % (37-47); Mean Corp Hgb Conc 33.8 g/dL (32-36); Mean Corpuscular Hgb 30.8 pg (27.0-32.0); Mean Corpuscular Volume 91.1 fL (81-99); Mean Platelet Vol. 9.3 fl (6.2-12.0); POSITIVE COUNT YES; POSITIVE DIFFERENTIAL YES; POSITIVE MORPHOLOGY YES; Platelet Count 151 K/mm3 (150-450); RBC Distribution Width CV 13.4 % (11.6-14.6); RBC Distribution Width SD 45.1 fl (35.1-43.9); Red Blood Count 3.25 M/mm3 (4.2-5.4); White Blood Count 24.8 K/mm3 (4.4-11.0)
[2025-03-07 06:04] LABS: Differential Indicated MANUAL DIFF
--- NOTE | 2025-03-07 06:43 | PCM.PN.INT ---
Assessment & Plan Assessment/Plan (1) Sepsis: PLAN: Plan RECOMMENDATIONS: 1. Continue to wean Levophed to maintain a mean arterial pressure at or above 65 mmHg. 2. Supplemental oxygen to maintain saturations at or above 90%. 3. Continue empiric antimicrobials, pending culture results. 4. Subcutaneous heparin for DVT prophylaxis. 5. Encourage incentive spirometer use and mobilize patient as tolerated. IMPRESSIONS: 1. Septic shock The patient presented with sepsis due to possible urinary tract source of infection with acute sepsis related organ dysfunction as evidenced by lactic acidemia and fluid refractory hypotension, requiring vasopressor support. The patient will be continued on Levophed to maintain a mean arterial pressure at or above 65 mmHg. The patient will be continued on empiric antimicrobials, pending infectious workup. 2. Acute kidney injury/hypokalemia Likely related to hypotension and gastrointestinal volume loss in the setting of diarrhea. Continue volume resuscitation and vasopressor support to maintain hemodynamic stability. Recheck morning BMP. 3. History of tobacco dependency in remission/hypertension/hypothyroidism Complicates care, management, recovery and prognosis. Continue to hold home antihypertensives. Remainder of supportive care as noted above. TIME: 33 minutes of critical care time, independent of procedures, was spent addressing the patient's septic shock, acute kidney injury, review of all data and collaboration with the care team. Subjective Subjective The patient was seen and examined at the bedside this morning. Events from the last 24 hours have been reviewed. The patient currently has a low-grade fever and remains on Levophed at 15 mcg/min to maintain hemodynamic stability. The patient is documented to be overall net +7.5 L for the hospitalization. White blood cell count is significantly elevated at 25,000. Hemoglobin has dropped to 10.0 g/dL. Platelet count is within normal limits. The patient denied any ongoing nausea, vomiting or diarrhea. She did report feeling generally unwell and achy. Objective Data Objective Data The patient's most recent lab work, culture data and imaging studies have all been personally reviewed. Preliminary blood cultures from March 06 were positive for gram-positive rods. Vital Signs: Vital Signs Temp Pulse Resp BP Pulse Ox O2 Del Method O2 Flow Rate 100.2 F H 73 20 H 122/71 H 100 Nasal Cannula 2 03/07/25 06:00 03/07/25 06:00 03/07/25 06:00 03/07/25 06:00 03/07/25 06:00 03/07/25 06:00 03/07/25 06:00 Oxygen Flow Rate (L/min) 2 Oxygen Delivery Method Nasal Cannula Weight: 199 lb 4.766 oz Body Mass Index (BMI) 30.2 Intake & Output: Intake and Output for Last 24 Hours 03/05/25 03/06/25 03/07/25 23:59 23:59 23:59 Intake Total 7292.93 / 7321.03 2041.52 / 2041.52 Output Total 700 / 1700 1175 / 1175 Balance 6592.93 / 5621.03 866.52 / 866.52 Lab / Micro Data Attestation: I reviewed the patient's lab results. 03/07/25 05:38 03/06/25 08:12 Labs: Laboratory Results - last 24 hr 03/06/25 06:42: WBC 2.0 L, RBC 4.18 L, Hgb 13.0, Hct 38.1, MCV 91.1, MCH 31.1, MCHC 34.1, RDW Std Deviation 41.5, RDW Coeff of Clara 12.6, Plt Count 185, MPV 9.2, Immature Gran % (Auto) 0.500, Neut % (Auto) 92.6 H, Lymph % (Auto) 6.4 L, Rankin % (Auto) 0.5, Eos % (Auto) 0.0, Baso % (Auto) 0.0, Absolute Neuts (auto) 1.9 L, Absolute Lymphs (auto) 0.13 L, Nucleated RBC % 0, Platelet Estimate A, Polychromasia 1+, Sodium 142, Potassium 2.7 L*, Chloride 108, Carbon Dioxide 20.2 L, Anion Gap 15, BUN 17, Creatinine 1.36 H, Estim Creat Clear Calc 44.99 L, Est GFR (MDRD) Non-Af 43 L, BUN/Creatinine Ratio 12.1, Glucose 123 H, Calcium 9.1, Total Bilirubin 0.61, AST 46 H, ALT 31, Alkaline Phosphatase 72, Total Protein 6.3, Albumin 3.7, Globulin 2.6, Albumin/Globulin Ratio 1.4, Lipase 38 03/06/25 08:12: Potassium 2.7 L*, Lactic Acid 3.8 H*, Magnesium 1.6 03/06/25 08:24: Urine Color Yellow, Urine Clarity Cloudy, Urine pH 6.0, Ur Specific [place] 1.010, Urine Protein 100 H, Urine Glucose (UA) Normal, Urine Ketones Negative, Urine Occult Blood 25 H, Urine Nitrite Negative, Urine Bilirubin Negative, Urine Urobilinogen Normal, Ur Leukocyte Esterase 25 H, Urine RBC 0-5 SEEN, Urine WBC 5-10 SEEN, Ur Squamous Epith Cells 0-5 SEEN, Urine Bacteria 3+, Urine Mucus 1+ 03/06/25 14:00: Lactic Acid 3.2 H* 03/07/25 05:38: WBC 24.8 H, RBC 3.25 L, Hgb 10.0 L, Hct 29.6 L, MCV 91.1, MCH 30.8, MCHC 33.8, RDW Std Deviation 45.1 H, RDW Coeff of Clara 13.4, Plt Count 151, MPV 9.3, Neut % (Auto) Not Reportable Micro: Microbiology 03/06/25 08:12 Blood Culture (Wb) - Anticubital Left Blood Culture - Preliminary 03/06/25 08:12 Blood Culture (Wb) - Anticubital Right Blood Culture - Preliminary 03/06/25 08:15 Mucosa - Nose SARS-CoV-2, Influenza & RSV (PCR) - Final Radiography Diagnostic Testing: Radiology Impression Abdomen/Pelvis CT 03/06/25 07:50 IMPRESSION: Status post cholecystectomy and appendectomy. Mild degree of central intrahepatic biliary ductal dilatation and common bile duct dilatation. Pancreatic atrophy. Multiple bilateral renal cysts and nonobstructive right intrarenal calculi. Findings suggestive of possible colitis in the right hemicolon. Reading Location: [id number] Chest X-Ray 03/06/25 08:32 IMPRESSION: Lungs are somewhat hypoinflated. Increased right basilar airspace disease is seen, with differential diagnosis including Atelectasis and Pneumonitis. Given the appearance, favor the latter. No evidence of pulmonary edema. No pleural effusion or pneumothorax is seen. The cardiomediastinal silhouette is stable, without evidence of cardiomegaly. Reading Location: [facility] Abdomen Ultrasound 03/06/25 08:42 IMPRESSION: Hepatomegaly and fatty infiltration of the liver. Contracted stone filled gallbladder. Reading Location: [facility] Physical Exam Const alert, oriented x3 and no apparent distress General Appearance: cooperative and ill appearing HEENT normocephalic, head/scalp atraumatic and moist oral mucous membranes Eyes PERRL, EOMs intact bilaterally and conjunctivae normal Neck supple General: trachea midline Chest inspection of chest normal Resp normal respiratory effort Auscultation: Negative for rales, rhonchi or wheezes Cardio regular rate, regular rhythm, S1 normal heart sound and S2 normal heart sound GI soft to palpation and non-tender Extremity no clubbing, cyanosis or edema Skin no rashes or lesions noted Neuro CN's II-XII intact bilaterally, moves all extremities and no focal motor deficits Psych cooperative and affect normal Charges/Coding Procedures Hospitalists Procedures: 48820 Critical Care 1st Hr
[2025-03-07 07:49] LABS: Lymphocyte 5 % (19-41); Metamyelocyte 6 % (0-1); Monocyte 1 % (0-10); Neutrophil-Band 12 % (0-5); Neutrophil-Segmented 76 % (47-70); Total Cells Counted 100 (MANUAL DIFF)
[2025-03-07 07:50] LABS: Platelet Estimate ADEQUATE (ADEQ); Red Cell Morphology NORM C+C NORMAL (NORM C&C)
[2025-03-07 07:51] LABS: Absolute Neutrophil Count 21.8 X10^3/uL (2.0-7.7); Pathologist Review May foll
[2025-03-07] MEDS: 0.9% Normal Saline (250mL Bag) 250 ML 15 ML IV (08:41)
[2025-03-07] MEDS: Vancomycin HCl 2,000 MG in 0.9% Normal Saline (500mL Bag) 500 ML 250 MG IV (08:43)
[2025-03-07 09:20] LABS: Anion Gap 11 (5-15); BUN 16 mg/dL (4-19); BUN/Creat Ratio 15.4 RATIO (10-20); Calcium,Total 7.1 mg/dL (7.6-11.0); Carbon Dioxide 16.9 mmol/L (21.0-32.0); Chloride 113 mmol/L (98-108); Creatinine, Serum 1.06 mg/dL (0.70-1.20); EST Glomerular Filtration Rate 58 (>60); Estimated Creatinine Clearance 60.57 ml/min (50-250); Glucose 99 mg/dL (70-99); Potassium 3.4 mmol/L (3.3-5.1); Sodium Level 141 mmol/L (133-145)
[2025-03-07] MEDS: Heparin Injection (Vial) 5,000 UNIT/ML VIAL 5000 UNIT SC ×2 (10:35→21:09)
--- NOTE | 2025-03-07 10:55 | PCM.RX.CS ---
Consult Antibiotic Management Pharmacy has been consulted to manage selected antibiotic: Vancomycin Type of Intervention Type of Consult: New start Suspected Infection Suspected Infection: Sepsis Labs Labs: Sodium 141 mmol/L (133-145) 03/07/25 08:45 Potassium 3.4 mmol/L (3.3-5.1) 03/07/25 08:45 Chloride 113 mmol/L (98-108) H 03/07/25 08:45 Carbon Dioxide 16.9 mmol/L (21.0-32.0) L 03/07/25 08:45 Anion Gap 11 (5-15) 03/07/25 08:45 BUN 16 mg/dL (4-19) 03/07/25 08:45 Creatinine 1.06 mg/dL (0.70-1.20) 03/07/25 08:45 Est GFR (MDRD) Non-Af 58 (>60) L 03/07/25 08:45 BUN/Creatinine Ratio 15.4 RATIO (10-20) 03/07/25 08:45 Glucose 99 mg/dL (70-99) 03/07/25 08:45 Microbiology Microbiology: Microbiology 03/06/25 08:12 Blood Culture (Wb) - Anticubital Right Blood Culture - Preliminary Gram positive sameer 03/06/25 08:12 Blood Culture (Wb) - Anticubital Left Blood Culture - Preliminary 03/06/25 08:15 Mucosa - Nose SARS-CoV-2, Influenza & RSV (PCR) - Final Goal Trough Goal Trough: 15-20 mcg/mL Pharmacy Plan for Drug Dosing Pharmacy Plan for Drug Dosing: NEW START IV VANCOMYCIN Consulting Physician: Dr. Donovan Indication: Septic Shock Goal Trough: 15-20 SrCr: 1.06 CrCl: 60 mL/min Comments: Patient had vancomycin 2000mg IV loading dose 03/07/25 @0843 Vancomycin Dose: 1000mg IV Q12hr to start 03/07/25 @2100 Pending Level: 03/08/25 @2030, prior to 4th total dose of vancomycin per protocol Pharmacy Service will continue to monitor and adjust dosing as required.
[2025-03-07] MEDS: Norepinephrine 8 MG in 0.9% Normal Saline (250mL Bag) 242 ML 9.4 MG CONT INF (11:36)
--- NOTE | 2025-03-07 12:06 | CASEMGMT ---
LA STEWART Assessment: Face to Face with pt for initial transition planning/care coordination assessment. RN TERRY introduced self and role at [facility], pt voices understanding and consents to assessment. Pt is A&O x4 and answers all questions appropriately at this time. Pt lying in bed in no distress with oxygen on. Pt just finished speaking on phone. Care providers, pharmacy, and demographics verified/updated. Admitting Dx: sepsis, acute cystitis, hypokalemia, colitis Strata Score: 1 PCP:Karo Specialists:Denies Preferred Pharmacy:[facility] [place]: [facility] [place] [facility] [place] Prescription Benefit: yes LNOK: Praveen Evans, son Living Arrangements: Pt lives alone in a two story home with 1-2 steps to enter. Pt reports she is I in ADL/IADLs and denies concerns at home. Transportation: Pt drives self and denies concerns with transportation. DME:w/c, walker, shower chair- doesn't use AD HHC/SNF: Denies hx of Pt states no concerns with going home at time of dc. Provided pt with a verbal local in network list of DME companies should pt be dc'd on O2, pt chose [employer]. 6 cl=18, therapy ordered but has not eval'd yet. 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 Pt reports she has family that lives within a mile as well. Pt states no further concerns/needs. CM to follow. Advised pt to ask CM if any further questions/concerns/needs arise, voices understanding. Pt Goal: Home Plan: TBD pending course of hospitalization and therapy evals. Anticipate dc home, follow O2 and therapy. Ayden TOVAR CM
--- NOTE | 2025-03-07 15:26 | PN.HOSP_ITS ---
Reason for Visit Reason for Visit: Diagnoses Sepsis, unspecified organism (03/06/25) Subjective Subjective Patient was seen and examined today, she is still on pressors to maintain her blood pressure. Urine culture is growing out gram-negative lactose specialized language instructor's, blood cultures positive for gram-negative and gram-positive bacteria. Patient's white blood cell count today was elevated at 24.8, hemoglobin was 10 Objective Data Objective Data Vital Signs: Vital Signs Temp Pulse Resp BP Pulse Ox O2 Del Method O2 Flow Rate 99.5 F H 70 25 H 98/59 L 97 Nasal Cannula 2 03/07/25 14:00 03/07/25 15:00 03/07/25 15:00 03/07/25 15:00 03/07/25 15:00 03/07/25 15:00 03/07/25 15:00 Oxygen Flow Rate (L/min) 2 Oxygen Delivery Method Nasal Cannula Weight: 90.4 kg Body Mass Index (BMI) 30.2 Intake & Output: Intake and Output for Last 24 Hours 03/05/25 03/06/25 03/07/25 23:59 23:59 23:59 Intake Total 7292.93 / 7321.03 4742.92 / 4742.92 Output Total 700 / 1700 1925 / 1925 Balance 6592.93 / 5621.03 2817.92 / 2817.92 Lab / Micro Data 03/07/25 05:38 03/07/25 08:45 Labs: Laboratory Results - last 24 hr 03/06/25 14:00: Lactic Acid 3.2 H* 03/07/25 05:38: WBC 24.8 H, RBC 3.25 L, Hgb 10.0 L, Hct 29.6 L, MCV 91.1, MCH 30.8, MCHC 33.8, RDW Std Deviation 45.1 H, RDW Coeff of Clara 13.4, Plt Count 151, MPV 9.3, Neut % (Auto) Not Reportable, Absolute Neuts (auto) 21.8 H, Absolute Lymphs (auto) 1.20, Total Counted 100, Neutrophils % (Manual) 76 H, Band Neutrophils % 12 H, Lymphocytes % (Manual) 5 L, Monocytes % (Manual) 1, M etamyelocytes % 6 H, Diff Path Review January, Platelet Estimate ADEQUATE, RBC Morphology NORM C+C, Sodium Cancelled, Potassium Cancelled, Chloride Cancelled, Carbon Dioxide Cancelled, Anion Gap Cancelled, BUN Cancelled, Creatinine Cancelled, Estim Creat Clear Calc Cancelled, Est GFR (MDRD) Non-Af Cancelled, BUN/Creatinine Ratio Cancelled, Glucose Cancelled, Calcium Cancelled 03/07/25 08:45: Sodium 141, Potassium 3.4, Chloride 113 H, Carbon Dioxide 16.9 L , Anion Gap 11, BUN 16, Creatinine 1.06, Estim Creat Clear Calc 60.57, Est GFR (MDRD) Non-Af 58 L, BUN/Creatinine Ratio 15.4, Glucose 99, Calcium 7.1 L Micro: Microbiology 03/06/25 08:12 Blood Culture (Wb) - Anticubital Left Blood Culture - Preliminary 03/06/25 08:12 Blood Culture (Wb) - Anticubital Right Blood Culture - Preliminary Gram positive sameer 03/06/25 08:24 Urine, Clean Catch Urine Culture - Preliminary GNR lactose specialized language instructor 03/06/25 08:15 Mucosa - Nose SARS-CoV-2, Influenza & RSV (PCR) - Final Physical Exam Narrative alert, oriented x3 and no apparent distress General Appearance: cooperative, well kempt and well developed Orientation / Consciousness: awake, oriented to person, oriented to place and oriented to time HEENT normocephalic, head/scalp atraumatic and moist oral mucous membranes Eyes PERRL, EOMs intact bilaterally and conjunctivae normal Neck supple, no JVD, thyroid normal and no carotid bruits General: trachea midline Resp normal respiratory effort, no retractions, no use of accessory muscles and clear to auscultation bilaterally Auscultation: Negative for rales, rhonchi or wheezes Cardio regular rate, regular rhythm, S1 normal heart sound, S2 normal heart sound, no murmurs, no rub and no gallops GI normal to inspection, nondistended, normoactive bowel sounds, soft to palpation, non-tender and non-distended Extremity no clubbing, cyanosis or edema Skin no rashes or lesions noted General Skin Exam: no breakdown Neuro oriented x3, CN's II-XII intact bilaterally, moves all extremities, no focal motor deficits and no sensory deficits noted Sensorium / Orientation: awake and alert Speech: speech normal Psych affect normal Assessment & Plan Assessment/Plan (1) Septic shock: (2) Sepsis: PLAN: Plan 1. Septic shock-secondary to acute urinary tract infection-patient is currently on Zosyn and vancomycin, await final culture result #2 hypokalemia-corrected, monitor as necessary #3 hypoxia-secondary to septic shock, pulse ox will be monitored, patient is on supplemental nasal cannula oxygen #4 acute urinary tract infection-patient is on Zosyn, await cultures #5 hypothyroidism-patient is on Synthroid #6 history of essential hypertension-patient's blood pressure medications will be held at this time #7 chronic lower back pain-patient takes Zanaflex, she will remain on this medication Total clinical time spent by myself addressing the patient's medical issues, reviewing all of her data, and collaborating with patient's care team: 35 minutes Charges/Coding Visit Charges Inpatient E&M: 91374 Subs Hosp L2
[2025-03-07] MEDS: Vancomycin IV 1,000 MG/200 ML BAG 200 MG IV (21:09)
[2025-03-08] VITALS (39 sets, daily range): BP systolic 84–128; BP diastolic 54–96; PULSE 45–84; RESP 14–32; TEMP 37.3–38.2; O2SAT 92–99; BMI 31.4
[2025-03-08] MEDS: KCL 20MEQ in 0.9% NS 20 MEQ/1,000 ML IV.SOLN. 75 MEQ IV (00:12)
[2025-03-08] MEDS: Ondansetron 4 MG/2 ML Vial IV (01:58)
[2025-03-08] MEDS: 0.9% Saline Lock 10 ML Syringe IV (02:00)
[2025-03-08] MEDS: traZODone 100 MG Tablet PO (02:08)
[2025-03-08] MEDS: Acetaminophen 325 MG Tablet 650 MG PO ×3 (04:48→20:25)
[2025-03-08] MEDS: Levothyroxine 112 MCG Tablet PO (05:03)
[2025-03-08 05:08] LABS: Hematocrit 30.9 % (37-47); Hemoglobin 10.5 g/dL (12.0-15.0); Mean Corpuscular Hgb 30.7 pg (27.0-32.0); Mean Corpuscular Volume 90.4 fL (81-99); Mean Platelet Vol. 9.7 fl (6.2-12.0); POSITIVE COUNT YES; POSITIVE MORPHOLOGY YES; Platelet Count 126 K/mm3 (150-450); RBC Distribution Width CV 13.7 % (11.6-14.6); RBC Distribution Width SD 45.6 fl (35.1-43.9); Red Blood Count 3.42 M/mm3 (4.2-5.4); White Blood Count 19.7 K/mm3 (4.4-11.0)
[2025-03-08 05:32] LABS: Anion Gap 8 (5-15); BUN 10 mg/dL (4-19); BUN/Creat Ratio 12.3 RATIO (10-20); Calcium,Total 7.6 mg/dL (7.6-11.0); Carbon Dioxide 18.6 mmol/L (21.0-32.0); Chloride 115 mmol/L (98-108); Creatinine, Serum 0.81 mg/dL (0.70-1.20); EST Glomerular Filtration Rate 80 (>60); Estimated Creatinine Clearance 80.62 ml/min (50-250); Glucose 88 mg/dL (70-99); Potassium 3.6 mmol/L (3.3-5.1); Sodium Level 142 mmol/L (133-145)
[2025-03-08 05:39] LABS: Differential Indicated MANUAL DIFF
[2025-03-08] MEDS: Piperacil/Tazobactam 3.375 GM in 0.9% Normal Saline (50mL MB+) 50 ML IV ×3 (06:26→22:03)
[2025-03-08 06:44] LABS: Eosinophil 1 % (0-5); Lymphocyte 2 % (19-41); Metamyelocyte 3 % (0-1); Monocyte 3 % (0-10); Myelocyte 1 % (0-0); Neutrophil-Band 33 % (0-5); Neutrophil-Segmented 57 % (47-70); Total Cells Counted 100 (MANUAL DIFF)
--- NOTE | 2025-03-08 06:44 | PN.CC_ITS ---
Assessment & Plan Assessment/Plan (1) Sepsis: PLAN: Plan RECOMMENDATIONS: 1. Stop continuous IV fluids. 2. Supplemental oxygen to maintain saturations at or above 90%. 3. Continue antimicrobials, pending finalized culture results. 4. Subcutaneous heparin for DVT prophylaxis. 5. Encourage incentive spirometer use and mobilize patient as tolerated. IMPRESSIONS: 1. Septic shock The patient presented with sepsis due to possible urinary tract source of infection +/- GI translocation in the setting gastroenteritis with acute sepsis related organ dysfunction as evidenced by lactic acidemia and fluid refractory hypotension, requiring vasopressor support. With supportive care, including supplemental IV fluid hydration and antimicrobial therapy, the patient was able to be weaned from vasopressor support. Plan to continue antimicrobials, pending finalized culture results. 2. Acute kidney injury Resolved. Likely related to hypotension and gastrointestinal volume loss in the setting of diarrhea. Continue to monitor urine output. No current indication for renal replacement therapy. 3. History of tobacco dependency in remission/hypertension/hypothyroidism Complicates care, management, recovery and prognosis. Continue to hold home antihypertensives. Remainder of supportive care as noted above. Dietary advancement as tolerated. This note was generated with [employer] dictation software. It may contain incorrect words, spelling, and punctuation that were not noted in checking the note before signing. Subjective Subjective The patient was seen and examined at the bedside this morning. Events from the last 24 hours have been reviewed. The patient continues to have low-grade fevers but remains otherwise hemodynamically stable on 2 L/min via nasal cannula the patient was weaned off of Levophed early this morning. The patient is currently documented to be overall net +8.8 L for the hospitalization. White blood cell count has improved to 20,000. Platelet count has dropped to 126,000. Creatinine is within normal limits. Objective Data Objective Data The patient's most recent lab work, culture data and imaging studies have all been personally reviewed. Preliminary blood cultures from March 06 were positive for gram-negative rods and rare gram-positive rods. Preliminary urine culture is positive for gram-negative sameer, lactose furnace mason. Vital Signs: Vital Signs Temp Pulse Resp BP Pulse Ox O2 Del Method O2 Flow Rate 99.4 F H 71 30 H 96/62 95 Nasal Cannula 2 03/08/25 05:15 03/08/25 05:45 03/08/25 05:15 03/08/25 05:45 03/08/25 05:15 03/08/25 05:15 03/08/25 05:15 Oxygen Flow Rate (L/min) 2 Oxygen Delivery Method Nasal Cannula Weight: 206 lb 4.8 oz Body Mass Index (BMI) 31.4 Intake & Output: Intake and Output for Last 24 Hours 03/06/25 03/07/25 03/08/25 23:59 23:59 23:59 Intake Total 7292.93 / 7321.03 5852.99 / 5866.09 601.52 / 601.52 Output Total 700 / 1700 3525 / 3625 650 / 650 Balance 6592.93 / 5621.03 2327.99 / 2241.09 -48.48 / -48.48 Lab / Micro Data Attestation: I reviewed the patient's lab results. 03/08/25 04:58 03/08/25 04:58 Labs: Laboratory Results - last 24 hr 03/07/25 05:38: Absolute Neuts (auto) 21.8 H, Absolute Lymphs (auto) 1.20, Total Counted 100, Neutrophils % (Manual) 76 H, Band Neutrophils % 12 H, Lymphocytes % (Manual) 5 L, Monocytes % (Manual) 1, Metamyelocytes % 6 H, Diff Path Review January, Platelet Estimate ADEQUATE, RBC Morphology NORM C+C, Sodium Cancelled, Potassium Cancelled, Chloride Cancelled, Carbon Dioxide Cancelled, Anion Gap Cancelled, BUN Cancelled, Creatinine Cancelled, Estim Creat Clear Calc Cancelled, Est GFR (MDRD) Non-Af Cancelled, BUN/Creatinine Ratio Cancelled, Glucose Cancelled, Calcium Cancelled 03/07/25 08:45: Sodium 141, Potassium 3.4, Chloride 113 H, Carbon Dioxide 16.9 L , Anion Gap 11, BUN 16, Creatinine 1.06, Estim Creat Clear Calc 60.57, Est GFR (MDRD) Non-Af 58 L, BUN/Creatinine Ratio 15.4, Glucose 99, Calcium 7.1 L 03/08/25 04:58: WBC 19.7 H, RBC 3.42 L, Hgb 10.5 L, Hct 30.9 L, MCV 90.4, MCH 30.7, MCHC 34.0, RDW Std Deviation 45.6 H, RDW Coeff of Clara 13.7, Plt Count 126 L, MPV 9.7, Neut % (Auto) Not Reportable, Sodium 142, Potassium 3.6, Chloride 115 H, Carbon Dioxide 18.6 L, Anion Gap 8, BUN 10, Creatinine 0.81, Estim Creat Clear Calc 80.62, Est GFR (MDRD) Non-Af 80, BUN/Creatinine Ratio 12.3, Glucose 88, Calcium 7.6 Micro: Microbiology 03/06/25 08:12 Blood Culture (Wb) - Anticubital Left Blood Culture - Preliminary 03/06/25 08:12 Blood Culture (Wb) - Anticubital Right Blood Culture - Preliminary Gram positive sameer 03/06/25 08:24 Urine, Clean Catch Urine Culture - Preliminary GNR lactose furnace mason 03/06/25 08:15 Mucosa - Nose SARS-CoV-2, Influenza & RSV (PCR) - Final Radiography Diagnostic Testing: Radiology Impression Abdomen/Pelvis CT 03/06/25 07:50 IMPRESSION: Status post cholecystectomy and appendectomy. Mild degree of central intrahepatic biliary ductal dilatation and common bile duct dilatation. Pancreatic atrophy. Multiple bilateral renal cysts and nonobstructive right intrarenal calculi. Findings suggestive of possible colitis in the right hemicolon. Reading Location: [facility] Chest X-Ray 03/06/25 08:32 IMPRESSION: Lungs are somewhat hypoinflated. Increased right basilar airspace disease is seen, with differential diagnosis including Atelectasis and Pneumonitis. Given the appearance, favor the latter. No evidence of pulmonary edema. No pleural effusion or pneumothorax is seen. The cardiomediastinal silhouette is stable, without evidence of cardiomegaly. Reading Location: [facility] Abdomen Ultrasound 03/06/25 08:42 IMPRESSION: Hepatomegaly and fatty infiltration of the liver. Contracted stone filled gallbladder. Reading Location: [facility] Physical Exam Const alert, oriented x3 and no apparent distress General Appearance: cooperative and ill appearing HEENT normocephalic, head/scalp atraumatic and moist oral mucous membranes Eyes PERRL, EOMs intact bilaterally and conjunctivae normal Neck supple General: trachea midline Chest inspection of chest normal Resp no use of accessory muscles Effort and Inspection: able to speak in complete sentences and tachypneic Auscultation: Negative for rales, rhonchi or wheezes Cardio regular rate, regular rhythm, S1 normal heart sound and S2 normal heart sound GI soft to palpation and non-tender Extremity no clubbing, cyanosis or edema Skin no rashes or lesions noted Neuro CN's II-XII intact bilaterally, moves all extremities and no focal motor deficits Psych Mood & Affect: flat affect Charges/Coding Visit Charges Inpatient E&M: 27575 Subs Hosp L3
[2025-03-08 06:45] LABS: Platelet Estimate ADEQUATE (ADEQ); Red Cell Morphology NORM C+C NORMAL (NORM C&C)
[2025-03-08 06:46] LABS: Absolute Neutrophil Count 17.7 X10^3/uL (2.0-7.7)
[2025-03-08 06:47] LABS: Absolute Lymphocyte Count 0.39 X10^3/uL (0.83-4.51)
[2025-03-08] MEDS: tiZANidine HCl 2 MG Tablet 4 MG PO ×2 (06:50→22:03)
[2025-03-08] MEDS: Vancomycin IV 1,000 MG/200 ML BAG 200 MG IV (08:58)
[2025-03-08] MEDS: Heparin Injection (Vial) 5,000 UNIT/ML VIAL 5000 UNIT SC ×2 (10:09→22:02)
[2025-03-08] MEDS: Ipratropium/Albuterol Sulfate 3 ML AMPUL.NEB INHALATION ×2 (11:03→18:28)
[2025-03-08] MEDS: Ensure Plus High Protein 120 ML LIQUID PO ×2 (12:59→17:16)
--- NOTE | 2025-03-08 14:40 | CASEMGMT ---
LA STEWART to pt room at this time to follow up on DC planning. This RN TERRY discussed how the pt has been doing with therapy. Pt states that she has also gotten up with nursing a few times. At this time, the pt denies the need for HH or OP Tx. Pt states that she plans to return home alone and states feeling safe doing so. Pt states that she has family that live close that can also provide support as needed. Pt also hopes that she does not need additional oxygen at the time of DC but is willing to if needed and prefers to go through [facility] in the case that she qualifies. See original RN TERRY note. Pt denies further questions or concerns at this time.
--- NOTE | 2025-03-08 15:45 | PCM.PN.HOSP ---
Reason for Visit Reason for Visit: Diagnoses Sepsis, unspecified organism (03/06/25) Severe sepsis with septic shock (03/06/25) Subjective Subjective Patient was seen and examined today, she was taken off pressors, she complained to me today of hurting all over, she was not specific. Patient's white blood cell count today was 19.7. Urine culture grew out E. coli, blood culture was positive for a gram-negative lactose licensing worker-this is a preliminary result. Objective Data Objective Data Vital Signs: Vital Signs Temp Pulse Resp BP Pulse Ox O2 Del Method O2 Flow Rate 100.6 F H 84 21 H 97/69 96 Nasal Cannula 2 03/08/25 13:00 03/08/25 13:00 03/08/25 13:00 03/08/25 13:00 03/08/25 13:00 03/08/25 13:23 03/08/25 13:23 Oxygen Flow Rate (L/min) 2 Oxygen Delivery Method Nasal Cannula Weight: 93.576 kg Body Mass Index (BMI) 31.4 Intake & Output: Intake and Output for Last 24 Hours 03/06/25 03/07/25 03/08/25 23:59 23:59 23:59 Intake Total 7292.93 / 7321.03 5852.99 / 5866.09 2694.02 / 2694.02 Output Total 700 / 1700 3525 / 3625 1350 / 1350 Balance 6592.93 / 5621.03 2327.99 / 2241.09 1344.02 / 1344.02 Lab / Micro Data 03/08/25 04:58 03/08/25 04:58 Labs: Laboratory Results - last 24 hr 03/08/25 04:58: WBC 19.7 H, RBC 3.42 L, Hgb 10.5 L, Hct 30.9 L, MCV 90.4, MCH 30.7, MCHC 34.0, RDW Std Deviation 45.6 H, RDW Coeff of Clara 13.7, Plt Count 126 L, MPV 9.7, Neut % (Auto) Not Reportable, Absolute Neuts (auto) 17.7 H, Absolute Lymphs (auto) 0.39 L, Total Counted 100, Neutrophils % (Manual) 57, Band Neutrophils % 33 H, Lymphocytes % (Manual) 2 L, Monocytes % (Manual) 3, Eosinophils % (Manual) 1, Metamyelocytes % 3 H, Myelocytes % 1 H, Platelet Estimate ADEQUATE, RBC Morphology NORM C+C, Sodium 142, Potassium 3.6, Chloride 115 H, Carbon Dioxide 18.6 L, Anion Gap 8, BUN 10, Creatinine 0.81, Estim Creat Clear Calc 80.62, Est GFR (MDRD) Non-Af 80, BUN/Creatinine Ratio 12.3, Glucose 88, Calcium 7.6 Micro: Microbiology 03/06/25 08:12 Blood Culture (Wb) - Anticubital Left Blood Culture - Preliminary GNR lactose licensing worker 03/06/25 08:12 Blood Culture (Wb) - Anticubital Right Blood Culture - Preliminary GNR lactose licensing worker 03/06/25 08:24 Urine, Clean Catch Urine Culture - Final Escherichia coli 03/06/25 08:15 Mucosa - Nose SARS-CoV-2, Influenza & RSV (PCR) - Final Physical Exam Narrative alert, oriented x3 and no apparent distress General Appearance: cooperative, well kempt and well developed Orientation / Consciousness: awake, oriented to person, oriented to place and oriented to time HEENT normocephalic, head/scalp atraumatic and moist oral mucous membranes Eyes PERRL, EOMs intact bilaterally and conjunctivae normal Neck supple, no JVD, thyroid normal and no carotid bruits General: trachea midline Resp normal respiratory effort, no retractions, no use of accessory muscles and clear to auscultation bilaterally Auscultation: Negative for rales, rhonchi or wheezes Cardio regular rate, regular rhythm, S1 normal heart sound, S2 normal heart sound, no murmurs, no rub and no gallops GI normal to inspection, nondistended, normoactive bowel sounds, soft to palpation, non-tender and non-distended Extremity no clubbing, cyanosis or edema Skin no rashes or lesions noted General Skin Exam: no breakdown Neuro oriented x3, CN's II-XII intact bilaterally, moves all extremities, no focal motor deficits and no sensory deficits noted Sensorium / Orientation: awake and alert Speech: speech normal Psych affect normal Assessment & Plan Assessment/Plan (1) Septic shock: (2) Sepsis: PLAN: Plan 1. Septic shock-secondary to acute urinary tract infection-patient is currently on Zosyn and vancomycin, await final culture result #2 hypokalemia-corrected, monitor as necessary #3 hypoxia-secondary to septic shock, pulse ox will be monitored, patient is on supplemental nasal cannula oxygen #4 acute urinary tract infection- grew out E. coli which is sensitive to Zosyn #5 hypothyroidism-patient is on Synthroid #6 history of essential hypertension-patient's blood pressure medications will be held at this time #7 chronic lower back pain-patient takes Zanaflex, she will remain on this medication Total clinical time spent by myself addressing the patient's medical issues, reviewing all of her data, and collaborating with patient's care team: 35 minutes Charges/Coding Visit Charges Inpatient E&M: 98166 Subs Hosp L2
[2025-03-08 21:30] LABS: Vancomycin, Trough Level 11.4 ug/mL (5.0-15.0)
[2025-03-08] MEDS: Vancomycin Trough/Random Due 1 LAB MC (22:02)
[2025-03-08] MEDS: Vancomycin HCl 1,250 MG in 0.9% Normal Saline (250mL Bag) 250 ML 167 MG IV (22:02)
--- NOTE | 2025-03-08 23:11 | PHA.PHARE_ITS ---
Consult Antibiotic Management Pharmacy has been consulted to manage selected antibiotic: Vancomycin Type of Intervention Type of Consult: Follow-up Labs Labs: Sodium 142 mmol/L (133-145) 03/08/25 04:58 Potassium 3.6 mmol/L (3.3-5.1) 03/08/25 04:58 Chloride 115 mmol/L (98-108) H 03/08/25 04:58 Carbon Dioxide 18.6 mmol/L (21.0-32.0) L 03/08/25 04:58 Anion Gap 8 (5-15) 03/08/25 04:58 BUN 10 mg/dL (4-19) 03/08/25 04:58 Creatinine 0.81 mg/dL (0.70-1.20) 03/08/25 04:58 Est GFR (MDRD) Non-Af 80 (>60) 03/08/25 04:58 BUN/Creatinine Ratio 12.3 RATIO (10-20) 03/08/25 04:58 Glucose 88 mg/dL (70-99) 03/08/25 04:58 Vancomycin Trough 11.4 ug/mL (5.0-15.0) 03/08/25 20:37 Microbiology Microbiology: Microbiology 03/06/25 08:12 Blood Culture (Wb) - Anticubital Left Blood Culture - Preliminary GNR lactose paperhanger and painter 03/06/25 08:12 Blood Culture (Wb) - Anticubital Right Blood Culture - Preliminary GNR lactose paperhanger and painter 03/06/25 08:24 Urine, Clean Catch Urine Culture - Final Escherichia coli 03/06/25 08:15 Mucosa - Nose SARS-CoV-2, Influenza & RSV (PCR) - Final Goal Trough Goal Trough: 15-20 mcg/mL Pharmacy Plan for Drug Dosing Pharmacy Plan for Drug Dosing: Pharmacy Service will continue to monitor and adjust dosing as required. TROUGH 11.4 @ 11.5 HOURS. INCREASE TO 1250MG Q12H AND FOLLOW UP TROUGH PRIOR TO 4TH DOSE Follow-Up Labs Follow-Up Labs: Trough: Vancomycin Date/Time Labs Ordered Labs to be done on [date and time ordered]: 03/10 @ 0900
[2025-03-09] VITALS (11 sets, daily range): BP systolic 104–134; BP diastolic 63–85; PULSE 45–83; RESP 14–20; TEMP 36.6–37.1; O2SAT 88–97; BMI 31.6
[2025-03-09] MEDS: Levothyroxine 112 MCG Tablet PO (06:21)
[2025-03-09] MEDS: Piperacil/Tazobactam 3.375 GM in 0.9% Normal Saline (50mL MB+) 50 ML IV (06:21)
[2025-03-09] MEDS: Ipratropium/Albuterol Sulfate 3 ML AMPUL.NEB INHALATION ×3 (07:20→19:27)
[2025-03-09] MEDS: Heparin Injection (Vial) 5,000 UNIT/ML VIAL 5000 UNIT SC ×2 (09:18→21:38)
[2025-03-09] MEDS: Ensure Plus High Protein 120 ML LIQUID PO ×2 (09:18→11:45)
[2025-03-09] MEDS: Vancomycin HCl 1,250 MG in 0.9% Normal Saline (250mL Bag) 250 ML 167 MG IV (11:42)
[2025-03-09] MEDS: Acetaminophen 325 MG Tablet 650 MG PO (11:45)
--- NOTE | 2025-03-09 13:00 | PCM.PN.HOSP ---
Reason for Visit Reason for Visit: Diagnoses Sepsis, unspecified organism (03/06/25) Severe sepsis with septic shock (03/06/25) Subjective Subjective Patient was seen and examined today, she is currently on room air and voices no complaints. Objective Data Objective Data Vital Signs: Vital Signs Temp Pulse Resp BP Pulse Ox O2 Del Method O2 Flow Rate 98.3 F 81 20 H 104/71 93 Room Air 2 03/09/25 06:00 03/09/25 12:20 03/09/25 12:20 03/09/25 06:00 03/09/25 07:21 03/09/25 10:00 03/09/25 07:21 Oxygen Flow Rate (L/min) 2 Oxygen Delivery Method Room Air Weight: 94.4 kg Body Mass Index (BMI) 31.6 Intake & Output: Intake and Output for Last 24 Hours 03/07/25 03/08/25 03/09/25 23:59 23:59 23:59 Intake Total 5852.99 / 5866.09 3494.02 / 3494.02 342.63 / 342.63 Output Total 3525 / 3625 2375 / 2375 450 / 450 Balance 2327.99 / 2241.09 1119.02 / 1119.02 -107.37 / -107.37 Lab / Micro Data 03/08/25 04:58 03/08/25 04:58 Labs: Laboratory Results - last 24 hr 03/08/25 20:37: Vancomycin Trough 11.4 Micro: Microbiology 03/06/25 08:12 Blood Culture (Wb) - Anticubital Left Blood Culture - Final GNR lactose assembler molded frames 03/06/25 08:12 Blood Culture (Wb) - Anticubital Right Blood Culture - Final Escherichia coli 03/06/25 08:24 Urine, Clean Catch Urine Culture - Final Escherichia coli 03/06/25 08:15 Mucosa - Nose SARS-CoV-2, Influenza & RSV (PCR) - Final Physical Exam Narrative alert, oriented x3 and no apparent distress General Appearance: cooperative, well kempt and well developed Orientation / Consciousness: awake, oriented to person, oriented to place and oriented to time HEENT normocephalic, head/scalp atraumatic and moist oral mucous membranes Eyes PERRL, EOMs intact bilaterally and conjunctivae normal Neck supple, no JVD, thyroid normal and no carotid bruits General: trachea midline Resp normal respiratory effort, no retractions, no use of accessory muscles and clear to auscultation bilaterally Auscultation: Negative for rales, rhonchi or wheezes Cardio regular rate, regular rhythm, S1 normal heart sound, S2 normal heart sound, no murmurs, no rub and no gallops GI normal to inspection, nondistended, normoactive bowel sounds, soft to palpation, non-tender and non-distended Extremity no clubbing, cyanosis or edema Skin no rashes or lesions noted General Skin Exam: no breakdown Neuro oriented x3, CN's II-XII intact bilaterally, moves all extremities, no focal motor deficits and no sensory deficits noted Sensorium / Orientation: awake and alert Speech: speech normal Psych affect normal Assessment & Plan Assessment/Plan (1) Septic shock: (2) Sepsis: PLAN: Plan 1. Septic shock-secondary to acute urinary tract infection-patient is currently on Zosyn and vancomycin, blood culture grew out E. coli which is sensitive to Zosyn, I will discontinue her vancomycin #2 hypokalemia-corrected, monitor as necessary #3 hypoxia-secondary to septic shock, pulse ox will be monitored, patient is on supplemental nasal cannula oxygen #4 acute urinary tract infection- grew out E. coli which is sensitive to Zosyn #5 hypothyroidism-patient is on Synthroid #6 history of essential hypertension-patient's blood pressure medications will be held at this time #7 chronic lower back pain-patient takes Zanaflex, she will remain on this medication Total clinical time spent by myself addressing the patient's medical issues, reviewing all of her data, and collaborating with patient's care team: 35 minutes Charges/Coding Visit Charges Inpatient E&M: 33219 Subs Hosp L2
[2025-03-09] MEDS: tiZANidine HCl 2 MG Tablet 4 MG PO ×2 (14:32→21:38)
[2025-03-09] MEDS: levoFLOXacin 750 MG Tablet PO (14:56)
[2025-03-09] MEDS: Ondansetron 4 MG/2 ML Vial IV (16:11)
[2025-03-10] VITALS (9 sets, daily range): BP systolic 109–165; BP diastolic 73–91; PULSE 58–72; RESP 13–20; TEMP 36.6–37.5; O2SAT 88–97; BMI 31.0
[2025-03-10] MEDS: traZODone 100 MG Tablet PO ×2 (00:52→21:32)
[2025-03-10] MEDS: tiZANidine HCl 2 MG Tablet 4 MG PO ×2 (05:53→17:42)
[2025-03-10] MEDS: levoFLOXacin 750 MG Tablet PO (05:53)
[2025-03-10] MEDS: Levothyroxine 112 MCG Tablet PO (05:53)
[2025-03-10] MEDS: Ipratropium/Albuterol Sulfate 3 ML AMPUL.NEB INHALATION ×2 (06:40→19:31)
[2025-03-10] MEDS: Acetaminophen 325 MG Tablet 650 MG PO ×2 (08:46→21:32)
[2025-03-10] MEDS: Heparin Injection (Vial) 5,000 UNIT/ML VIAL 5000 UNIT SC ×2 (08:46→21:32)
--- NOTE | 2025-03-10 10:43 | NURSING ---
Pt called to report that pt was SOBw/ SPO2 in the 80s while walking 120'. Placed on 2 liters and improved to 90s. PT left pt in chair w/ nasal canula on @ 2 L. and updated this nurse. Nurse went and assessed pt. Pt is Mouthbreathing. While alert she was 95% on 2L. DRopped to 1L and then RA with not change, but left SPO2 Monitor on pt. At rest her O2 dropped to 89 and NC was turned back to 2L. SPO2 returned to mid 90s
--- NOTE | 2025-03-10 17:14 | PN.HOSP_ITS ---
Reason for Visit Reason for Visit: Diagnoses Sepsis, unspecified organism (03/06/25) Severe sepsis with septic shock (03/06/25) Subjective Subjective Patient was seen and examined today, she is still requiring supplemental oxygen. Patient has no specific complaints today. Objective Data Objective Data Vital Signs: Vital Signs Temp Pulse Resp BP Pulse Ox O2 Del Method O2 Flow Rate 98.2 F 66 15 128/81 H 97 Nasal Cannula 2 03/10/25 14:14 03/10/25 14:14 03/10/25 14:14 03/10/25 14:14 03/10/25 14:14 03/10/25 14:14 03/10/25 14:14 Oxygen Flow Rate (L/min) 2 Oxygen Delivery Method Nasal Cannula Weight: 92.7 kg Body Mass Index (BMI) 31.0 Intake & Output: Intake and Output for Last 24 Hours 03/08/25 03/09/25 03/10/25 23:59 23:59 23:59 Intake Total 3494.02 / 3494.02 1337.63 / 1337.63 1900 / 1900 Output Total 2375 / 2375 2400 / 2400 2450 / 2450 Balance 1119.02 / 1119.02 -1062.37 / -1062.37 -550 / -550 Lab / Micro Data 03/08/25 04:58 03/08/25 04:58 Micro: Microbiology 03/06/25 08:12 Blood Culture (Wb) - Anticubital Left Blood Culture - Final GNR lactose tank truck milk receiver 03/06/25 08:12 Blood Culture (Wb) - Anticubital Right Blood Culture - Final Escherichia coli 03/06/25 08:24 Urine, Clean Catch Urine Culture - Final Escherichia coli 03/06/25 08:15 Mucosa - Nose SARS-CoV-2, Influenza & RSV (PCR) - Final Physical Exam Narrative alert, oriented x3 and no apparent distress General Appearance: cooperative, well kempt and well developed Orientation / Consciousness: awake, oriented to person, oriented to place and oriented to time HEENT normocephalic, head/scalp atraumatic and moist oral mucous membranes Eyes PERRL, EOMs intact bilaterally and conjunctivae normal Neck supple, no JVD, thyroid normal and no carotid bruits General: trachea midline Resp normal respiratory effort, no retractions, no use of accessory muscles and clear to auscultation bilaterally Auscultation: Negative for rales, rhonchi or wheezes Cardio regular rate, regular rhythm, S1 normal heart sound, S2 normal heart sound, no murmurs, no rub and no gallops GI normal to inspection, nondistended, normoactive bowel sounds, soft to palpation, non-tender and non-distended Extremity no clubbing, cyanosis or edema Skin no rashes or lesions noted General Skin Exam: no breakdown Neuro oriented x3, CN's II-XII intact bilaterally, moves all extremities, no focal motor deficits and no sensory deficits noted Sensorium / Orientation: awake and alert Speech: speech normal Psych affect normal Assessment & Plan Assessment/Plan (1) Septic shock: PLAN: Plan 1. Septic shock-secondary to acute urinary tract infection-patient is currently on levofloxacin orally, blood cultures positive for E. coli which is sensitive to Cipro and levofloxacin #2 hypokalemia-corrected, monitor as necessary #3 hypoxia-secondary to septic shock, pulse ox will be monitored, patient is on supplemental nasal cannula oxygen #4 acute urinary tract infection- grew out E. coli which is sensitive to quinolones #5 hypothyroidism-patient is on Synthroid #6 history of essential hypertension-patient's blood pressure medications will be held at this time #7 chronic lower back pain-patient takes Zanaflex, she will remain on this medication Total clinical time spent by myself addressing the patient's medical issues, reviewing all of her data, and collaborating with patient's care team: 35 minutes Charges/Coding Visit Charges Inpatient E&M: 09287 Subs Hosp L2
[2025-03-11] VITALS (7 sets, daily range): BP systolic 145–150; BP diastolic 75–90; PULSE 63–94; RESP 16–20; TEMP 36.8–37; O2SAT 88–95; BMI 31.6
[2025-03-11] MEDS: levoFLOXacin 750 MG Tablet PO (06:12)
[2025-03-11] MEDS: Levothyroxine 112 MCG Tablet PO (06:12)
[2025-03-11] MEDS: tiZANidine HCl 2 MG Tablet 4 MG PO (06:12)
[2025-03-11] MEDS: Ondansetron 4 MG/2 ML Vial IV (06:16)
[2025-03-11] MEDS: 0.9% Saline Lock 10 ML Syringe IV ×2 (06:16→10:53)
[2025-03-11 06:46] LABS: Absolute Lymphocyte Count 1.53 X10^3/uL (0.83-4.51); Absolute Neutrophil Count 4.7 X10^3/uL (2.0-7.7); Basophil# 0.03 X10^3/uL; Basophil% 0.4 % (0-1); Eosinophil# 0.18 X10^3/uL; Eosinophils% 2.2 % (0-5); Hemoglobin 10.4 g/dL (12.0-15.0); Lymphocyte # 1.53 X10^3/ul (0.83-4.51); Lymphocyte % 18.9 % (19-41); Mean Corp Hgb Conc 34.7 g/dL (32-36); Mean Corpuscular Hgb 30.8 pg (27.0-32.0); Mean Corpuscular Volume 88.8 fL (81-99); Monocyte# 1.44 X10^3/uL; Monocyte% 17.8 % (0-10); NRBC Flagged by Analyzer 0 % (0-5); Neutrophil # 4.65 X10^3/uL (2.7-7.7); Neutrophil % 57.6 % (47-70); Platelet Count 199 K/mm3 (150-450); RBC Distribution Width CV 13.8 % (11.6-14.6); RBC Distribution Width SD 44.9 fl (35.1-43.9); Red Blood Count 3.38 M/mm3 (4.2-5.4); White Blood Count 8.1 K/mm3 (4.4-11.0)
[2025-03-11] MEDS: Ipratropium/Albuterol Sulfate 3 ML AMPUL.NEB INHALATION ×2 (07:04→12:02)
[2025-03-11] MEDS: Ensure Plus High Protein 120 ML LIQUID PO (08:44)
[2025-03-11] MEDS: Heparin Injection (Vial) 5,000 UNIT/ML VIAL 5000 UNIT SC (08:44)
[2025-03-11] MEDS: Ondansetron 4 MG/2 ML Vial 8 MG IV (10:53)
[2025-03-11] MEDS: Acetaminophen 325 MG Tablet 650 MG PO (11:01)
--- NOTE | 2025-03-11 14:06 | PCM.DC ---
Discharge Instructions Diet Discharge Diet: No restrictions DC O2, CPAP, BIPAP needs Home O2 Discharge instructions: No Dressing / Incision Discharge Activity: Return to Normal Activity Weight Bearing Status: Full weight bearing Follow Up Care Test Results: Test results from this visit will be discussed in further detail at your follow-up appointment, if applicable. Discharge Plan Admission Admit Date/Time: 03/06/25 09:49 Primary Reason for Your Visit: Septic shock due to urinary tract infection Attending Provider: Jigar Mustafa Primary Care Provider: Mike Huddleston Consulting Providers: Romero Lane; Franck Marte; Jaquan Foy; Matt Donovan; Brenden Garcia; Jaren Ramirez; Corey Nelson; Marissa Sampson; Ron Reese; Isac Gant; Kike Enriquez; Tsering Rogers; Therese Dowell; Mary Brooks; Parrish Posada; Jose Fitzpatrick; Lawrence Bro; Dk Berman; Renita García; Jordan Casanova; Sarbjit Celis; Juan Carlos Chase; Kobe Forbes Discharge Orders/Prescriptions Prescriptions: New ondansetron HCl 8 mg tablet 8 mg PO Q8H PRN (Reason: nausea and vomiting) Qty: 30 0RF levofloxacin 500 mg tablet 500 mg PO DAILY Qty: 3 0RF Rx Instructions: Start on 03/11/2025 Continued trazodone 100 mg tablet 100 mg PO QHS PRN (Reason: insomnia) tizanidine 4 mg capsule 4 mg PO TID PRN (Reason: muscle spasticity) hydrochlorothiazide 25 mg tablet 25 mg PO DAILY losartan 100 mg tablet 100 mg PO DAILY levothyroxine 112 mcg tablet 112 mcg PO DAILY Referrals / Follow Up: Mike Huddleston MD [Primary Care Provider] - See Referral Note (In 2 weeks) Yg Mosqueda MD [Med Staff - Edging Machine Feeder] - Disposition Disposition (needs filled in before D/C Order can be placed): Home, Self Care
--- NOTE | 2025-03-11 14:14 | DS.PCM_ITS ---
Providers Date of Admission: 03/06/25 Date of Discharge: 03/11/25 Primary Care Physician: Dr. Mike Huddleston MD Consultations 03/06/25 10:39 Consult: Concrete Stone Finishing Supervisor / Pulmonary Medicine Routine Consulting Provider: Intensivists/Pulmonary Med Reason for Consult: sepsis EMERGENT Consult: No MD Notified: Yes Date Notified: 03/06/25 Time Notified: 10:04 Method of Notification: Verbal Reason For Visit: SEPSIS, ACUTE CYSTITIS, HYPOKALEMIA, COLITIS Diagnosis Discharge Diagnosis (1) Septic shock: Status: Acute Code(s): A41.9 - Sepsis, unspecified organism; R65.21 - Severe sepsis with septic shock Plan 1. Septic shock-secondary to acute urinary tract infection-patient is currently on levofloxacin orally, blood cultures positive for E. coli which is sensitive to Cipro and levofloxacin #2 hypokalemia-corrected, monitor as necessary #3 hypoxia-secondary to septic shock, pulse ox will be monitored, patient is on supplemental nasal cannula oxygen #4 acute urinary tract infection- grew out E. coli which is sensitive to quinolones #5 hypothyroidism-patient is on Synthroid #6 history of essential hypertension-patient's blood pressure medications will be held at this time #7 chronic lower back pain-patient takes Zanaflex, she will remain on this medication Total clinical time spent by myself addressing the patient's medical issues, reviewing all of her data, and collaborating with patient's care team: 35 minutes Medications at Discharge Home Medications trazodone 100 mg tablet 100 mg PO QHS PRN insomnia 08/22/22 tizanidine 4 mg capsule 4 mg PO TID PRN muscle spasticity 01/27/24 hydrochlorothiazide 25 mg tablet 25 mg PO DAILY 03/06/25 levothyroxine 112 mcg tablet 112 mcg PO DAILY 03/06/25 losartan 100 mg tablet 100 mg PO DAILY 03/06/25 levofloxacin 500 mg tablet 500 mg PO DAILY #3 tabs 03/11/25 ondansetron HCl 8 mg tablet 8 mg PO Q8H PRN nausea and vomiting #30 tabs 03/11/25 Hospital Course Operations None Procedures PICC line placement Summary of Care Provided Minutes Spent on Discharge: 32 Hospital Course: 65-year-old white female was seen in the emergency room at [facility] with complaints of nausea vomiting and diarrhea. Patient denied any abdominal pain. She room included a CBC which showed a low white blood cell count of 2, chemistry profile was remarkable for a potassium of 2.7, creatinine of 1.36, and a lactic acid was 3.8. Patient's urinalysis showed 0-5 RBCs, 5-10 WBCs, and 3+ bacteria. CT of the abdomen pelvis revealed findings suggestive of possible colitis in the right hemicolon, there is a mild degree of central intrahepatic biliary ductal dilatation and common bile duct dilatation. Patient's chest x-ray showed hypoinflated lungs, there was increased right basilar airspace disease seen with differential diagnosis including atelectasis and pneumonitis. Patient was admitted to the ICU for septic shock and placed on IV pressors and IV antibiotics. The etiology of the septic shock was felt to be a urinary tract infection, urine grew out E. coli which was sensitive to multiple antibiotics. Patient was given potassium supplementation, and she was on oxygen due to hypoxia. Patient improved during her hospital stay and was weaned off pressors, she was transferred to PCU for further care and on 03/11/2025, she appeared to be stable for discharge home and was examined on that day:alert, oriented x3 and no apparent distress General Appearance: cooperative, well kempt and well developed Orientation / Consciousness: awake, oriented to person, oriented to place and oriented to time HEENT normocephalic, head/scalp atraumatic and moist oral mucous membranes Eyes PERRL, EOMs intact bilaterally and conjunctivae normal Neck supple, no JVD, thyroid normal and no carotid bruits General: trachea midline Resp normal respiratory effort, no retractions, no use of accessory muscles and clear to auscultation bilaterally Auscultation: Negative for rales, rhonchi or wheezes Cardio regular rate, regular rhythm, S1 normal heart sound, S2 normal heart sound, no murmurs, no rub and no gallops GI normal to inspection, nondistended, normoactive bowel sounds, soft to palpation, non-tender and non-distended Extremity no clubbing, cyanosis or edema Skin no rashes or lesions noted General Skin Exam: no breakdown Neuro oriented x3, CN's II-XII intact bilaterally, moves all extremities, no focal motor deficits and no sensory deficits noted Sensorium / Orientation: awake and alert Speech: speech normal Psych affect normal Patient required oxygen at 2 L/min on ambulation only due to a pulse ox of 88% on room air while ambulating, I discussed this with the patient and she opted not to have oxygen at her home and I was agreeable to this. Weight / BMI Weight Weight: 94.3 kg Body Mass Index (BMI) 31.6 ABG / Lab / Microbiology Data 03/11/25 05:40 03/08/25 04:58 Laboratory: Laboratory Results - last 24 hr 03/11/25 05:40: WBC 8.1, RBC 3.38 L, Hgb 10.4 L, Hct 30.0 L, MCV 88.8, MCH 30.8, MCHC 34.7, RDW Std Deviation 44.9 H, RDW Coeff of Clara 13.8, Plt Count 199, MPV 10.0, Immature Gran % (Auto) 3.100 H, Neut % (Auto) 57.6, Lymph % (Auto) 18.9 L, Boyle % (Auto) 17.8 H, Eos % (Auto) 2.2, Baso % (Auto) 0.4, Absolute Neuts (auto) 4.7, Absolute Lymphs (auto) 1.53, Nucleated RBC % 0 Microbiology: Microbiology 03/06/25 08:12 Blood Culture (Wb) - Anticubital Left Blood Culture - Final GNR lactose rubber production machine operator 03/06/25 08:12 Blood Culture (Wb) - Anticubital Right Blood Culture - Final Escherichia coli 03/06/25 08:24 Urine, Clean Catch Urine Culture - Final Escherichia coli 03/06/25 08:15 Mucosa - Nose SARS-CoV-2, Influenza & RSV (PCR) - Final D/C Instructions Discharge Diet: No restrictions Weight Bearing Status: Full weight bearing DC O2, CPAP, BIPAP Needs Home O2 Discharge instructions: No Meaningful Use Info Meaningful Use Meaningful Use Diagnoses (Choose all that apply): None applicable Ischemic Stroke Statin Dosing Therapy Reference: STATIN DOSE THERAPY REFERENCE: * Patients > 75 years receive moderate or high dose statin therapy. * Patients 75 years or YOUNGER should receive HIGH intensity statin dose unless contraindicated. You will be required to document reason for non-treatment if statin daily dose does not meet guidelines. HIGH DOSE STATIN THERAPY DAILY Atorvastatin > than or = to 40 mg Rosuvastatin > than or = to 20 mg Amlodipine + Atorvastatin > than or = to 2.5/40 mg Ezetimibe + Simvastatin 10/80 mg Simvastatin 80mg Discharge Plan Admission Admit Date/Time: 03/06/25 09:49 Primary Reason for Your Visit: Septic shock due to urinary tract infection Attending Provider: Jigar Mustafa Primary Care Provider: Mike Huddleston Consulting Providers: Romero Lane; Franck Marte; Jaquan Foy; Matt Donovan; Brenden Garcia; Jaren Ramirez; Corey Nelson; Marissa Sampson; Ron Reese; Isac Gant; Kike Enriquez; Tsering Rogers; Therese Dowell; Mary Brooks; Parrish Posada; Jose Fitzpatrick; Lawrence Bro; Dk Berman; Renita García; Jordan Casanova; Sarbjit Celis; Juan Carlos Chase; Kobe Forbes Discharge Orders/Prescriptions Prescriptions: New ondansetron HCl 8 mg tablet 8 mg PO Q8H PRN (Reason: nausea and vomiting) Qty: 30 0RF levofloxacin 500 mg tablet 500 mg PO DAILY Qty: 3 0RF Rx Instructions: Start on 03/11/2025 Continued trazodone 100 mg tablet 100 mg PO QHS PRN (Reason: insomnia) tizanidine 4 mg capsule 4 mg PO TID PRN (Reason: muscle spasticity) hydrochlorothiazide 25 mg tablet 25 mg PO DAILY losartan 100 mg tablet 100 mg PO DAILY levothyroxine 112 mcg tablet 112 mcg PO DAILY Referrals / Follow Up: Mike Huddleston MD [Primary Care Provider] - See Referral Note (In 2 weeks) Yg Mosqueda MD [Med Staff - Premium Representative] - Disposition Disposition (needs filled in before D/C Order can be placed): Home, Self Care Charges/Coding Visit Charges Inpatient E&M: 13844 Disch Hosp >30min
--- NOTE | 2025-03-11 14:36 | CASEMGMT ---
Patient has order for discharge. Patient refusing oxygen at discharge. RN CM in to discuss needs at discharge. Patient denies needs or help at discharge. Patient had no further questions or concerns.
--- NOTE | 2025-03-11 16:34 | PHA.DC_ITS ---
Pharmacy [facility] Counseling Pharmacy Service has performed discharge medication reconciliation and counseling for this patient. 1. LEVOFLOXACIN 500MG PO DAILY X 3 DAYS 2. ONDANSETRON 8MG PO Q8H PRN NAUSEA/VOMITING The patient's discharge medication list was reviewed for discrepancies and discrepancies were resolved. The patient was counseled on the following discharge medications and changes in medications for homegoing were reviewed. The Reason for Use, instructions for use, and potential side effects were reviewed for all new medications. The patient's questions regarding all of their medications were answered. The patient was able to verbally demonstrate an understanding of their discharge medications. Medications at Discharge Home Medications trazodone 100 mg tablet 100 mg PO QHS PRN insomnia 08/22/22 tizanidine 4 mg capsule 4 mg PO TID PRN muscle spasticity 01/27/24 hydrochlorothiazide 25 mg tablet 25 mg PO DAILY 03/06/25 levothyroxine 112 mcg tablet 112 mcg PO DAILY 03/06/25 losartan 100 mg tablet 100 mg PO DAILY 03/06/25 levofloxacin 500 mg tablet 500 mg PO DAILY #3 tabs 03/11/25 ondansetron HCl 8 mg tablet 8 mg PO Q8H PRN nausea and vomiting #30 tabs 03/11/25
== END 2025-03-11 16:40 | disposition home or self-care (01) | DRG 871 ==
LOC: ED 09:32 → ICU 10:11 → PCU 03-09 13:08
PROVIDERS: Internal Medicine Critical Care Medicine; Admitting Provider Internal Medicine; Emergency Provider Emergency Medicine; PCP Family Medicine; Visit Provider Internal Medicine
DX: A41.51 Sepsis due to Escherichia coli [E. coli] (principal); R65.21 Severe sepsis with septic shock; E87.20 Acidosis, unspecified; N17.9 Acute kidney failure, unspecified; N39.0 Urinary tract infection, site not specified; D70.9 Neutropenia, unspecified; I10 Essential (primary) hypertension; E03.9 Hypothyroidism, unspecified; E87.6 Hypokalemia; K52.9 Noninfective gastroenteritis and colitis, unspecified; M54.50 Low back pain, unspecified; Z90.710 Acquired absence of both cervix and uterus; N28.1 Cyst of kidney, acquired; Z87.891 Personal history of nicotine dependence; Z79.890 Hormone replacement therapy; G89.29 Other chronic pain; R09.02 Hypoxemia
CPT/HCPCS: 36415; 36569; 71045; 74177; 76705; 80048; 80053; 80202; 81001; 83605; 83690; 83735; 84132; 85025; 87040; 87077; 87086; 87088; 87186; 87631; 93005; 94640; 94762; 97116; 97162; 97166; 97530; 97535; 99285; P9612; Q9967; A4216; J2405